=== PATIENT | female | born 1940 | race Hispanic/Latino ===

== ENCOUNTER 2017-07-06 18:27 | Emergency (ER) | payer MEDICARE, BC ==
[2017-07-06 18:38] VITALS: BMI 20.9
[2017-07-06 18:41] VITALS: TEMP 98
[2017-07-06 19:51] LABS: BASO # 0.01 K/mm3 (0.0-2.0); BASO % 0.2 % (0.0-3.0); EOS # 0.2 (0.0-0.7); EOS % 3.1 % (1.5-5.0); GRAN # 4.29 (1.4-6.5); GRAN % 66.6 % (50.0-68.0); LYMPH # 1.4 (1.2-3.4); LYMPH % 21.7 % (22.0-35.0); MEAN CELL VOLUME 90.9 fl (80.0-105.0); MEAN CORPUSCULAR HEMOGLOBIN 30.4 pg (25.0-35.0); MEAN CORPUSCULAR HGB CONC 33.4 g/dl (31.0-37.0); MEAN PLATELET VOLUME 9.9 fl (7.0-11.0); MONO # 0.5 (0.1-0.6); MONO % 8.4 % (1.0-6.0); RED CELL DISTRIBUTION WIDTH 13.6 % (11.5-14.5); WHITE BLOOD COUNT 6.4 10^3/ul (4.5-11.0)
[2017-07-06 20:05] LABS: INR 0.94 (0.93-1.08)
[2017-07-06 20:08] LABS: ALB/GLOB RATIO 1.6 (1.1-1.8); ALKALINE PHOSPHATASE 69 U/L (38-126); ALT/SGPT 44 U/L (7-56); AST/SGOT 35 U/L (14-36); BILIRUBIN,TOTAL 0.3 mg/dL (0.2-1.3); BLOOD UREA NITROGEN 17 mg/dL (7-21); CALCIUM 9.8 mg/dL (8.4-10.5); CARBON DIOXIDE 29 mmol/L (21-33); CHLORIDE 101 mmol/L (98-107); GFR AFRICAN-AMERICAN > 60; GLUCOSE,RANDOM 145 mg/dL (70-110); SODIUM 139 mmol/L (132-148); TOTAL PROTEIN 7.4 g/dL (5.8-8.3)
--- NOTE | 2017-07-06 21:15 | CT ---
EXAM: CT Chest Without Intravenous Contrast CLINICAL HISTORY: The patient age is 77 years old and is female; Pain; Abdominal pain; Acute; Chest pain; Type not specified; Patient HX: Pt ate to fast. RO food impaction Facility exam id and description: Ct cheabds chest, abdomen w/o contrast TECHNIQUE: Axial computed tomography images of the chest without intravenous contrast. All CT scans at this facility use one or more dose reduction techniques, viz.: automated exposure control; ma/kV adjustment per patient size (including targeted exams where dose is matched to indication; i.e. head); or iterative reconstruction technique. Coronal and sagittal reformatted images were created and reviewed. COMPARISON: No relevant prior studies available. FINDINGS: Lungs: Atelectatic changes are identified at the bilateral lung bases as well as within the right middle lobe and lingula. A small consolidation is visualized at the right pulmonary apex, likely due to parenchymal scarring. Within the right upper lobe on series 4 image 22, there is a 3-4 mm nodule. Pleural space: No pneumothorax. No significant effusion. Heart: There is coronary artery calcification. No cardiomegaly. Mediastinum: There is no distention of the esophagus. Bones/joints: Osteopenia. Hypertrophic degenerative changes are noted within the spine. There is significant increased kyphosis of the thoracic spine. Vasculature: There is atherosclerotic calcification of the thoracic aorta. Lymph nodes: No enlarged lymph nodes. Other: Multiple right axillary surgical clips are visualized. The right breast is absent, consistent with postoperative change. IMPRESSION: 1. Atelectatic changes are identified at the bilateral lung bases as well as within the right middle lobe and lingula. A small consolidation is visualized at the right pulmonary apex, likely due to parenchymal scarring. 2. Within the right upper lobe on series 4 image 22, there is a 3-4 mm nodule.If this patient is at low risk for a primary malignancy, then no follow-up is required. If this patient is at high risk for a primary maligancy, then a follow-up noncontrast chest CT is recommended at 12 months. If unchanged at that time, then no follow-up is required. Fleischner Society Recommendations. Incidental Pulmonary Nodule Follow-up. Radiology, 2005 Nov;237(2):395-400. 3. There is no distention of the esophagus. If further evaluation is recommended, and upper GI exam is suggested. 4. Additional CT findings described above. EXAM: CT Abdomen Without Intravenous Contrast EXAM DATE/TIME: 07/06/2017 7:20 PM CLINICAL HISTORY: The patient age is 77 years old and is female; Pain; Abdominal pain; Acute; Chest pain; Type not specified; Patient HX: Pt ate to fast. RO food impaction Facility exam id and description: Ct cheabds chest, abdomen w/o contrast TECHNIQUE: Axial computed tomography images of the abdomen without intravenous contrast. All CT scans at this facility use one or more dose reduction techniques, viz.: automated exposure control; ma/kV adjustment per patient size (including targeted exams where dose is matched to indication; i.e. head); or iterative reconstruction technique. Coronal and sagittal reformatted images were created and reviewed. COMPARISON: CT - ABD PELVIS IV CONTRAST ONLY 11/19/2015 9:24:59 AM FINDINGS: Liver: There is a subcentimeter hypodense lesion within the right lobe of the liver, which is too small to characterize further. This is stable. The liver measures 18.7 cm in the craniocaudad dimension, consistent with hepatomegaly. Gallbladder and bile ducts: No calcified stones. No ductal dilation. Pancreas: No ductal dilation. Spleen: No splenomegaly. Adrenals: Within the left adrenal gland, there is a small hypodense nodule measuring 4 mm. This is indeterminate in etiology, but stable. Kidneys and ureters: Nonobstructing left renal calculi are visualized, the largest measuring 6 mm. There is left renal pelviectasis. Stomach and bowel: There is significant fecal material within the right hemicolon. Appendix: Not visualized. Intraperitoneal space: No free air. Bones/joints: Osteopenia. Hypertrophic degenerative changes are noted within the spine. Vasculature: Atherosclerotic changes are visualized. No abdominal aortic aneurysm. Lymph nodes: No enlarged lymph nodes. IMPRESSION: 1. Nonobstructing left renal calculi are again visualized, the largest measuring 6 mm. There is left renal pelviectasis. 2. There is a subcentimeter hypodense lesion within the right lobe of the liver, which is too small to characterize further. This is stable. Hepatomegaly. 3. Within the left adrenal gland, there is a small hypodense nodule measuring 4 mm. This is indeterminate in etiology, but stable. 4. Additional CT findings described above.
--- NOTE | 2017-07-06 21:20 | ED PDOC ---
Arrival/HPI - General Chief Complaint: GI Problem Time Seen by Provider: 07/06/17 19:06 Historian: Patient - History of Present Illness Narrative History of Present Illness (Text): 07/06/17 21:19 A 77 year old female presents to the emergency department for evaluation. Patient reports she ate vegetables and mash potatoes too quickly and feels something is stuck inside her throat. She states she had the sensation she couldn't breath for a moment but it spontaneously resolved shortly after. Patient is concerned something is still stuck in her throat so she came to the emergency room. Patient denies any fever, chills, nausea, vomiting, abdominal pain, chest pain, shortness of breath or any other complaints. Time/Duration: Prior to Arrival Symptom Course: Unchanged Quality: Other Context: Home Past Medical History - Provider Review Nursing Documentation Reviewed: Yes - Infectious Disease Hx of Infectious Diseases: None - Cardiac Hx Hypertension: Yes Hx Pacemaker: No - Hematological/Oncological Hx Blood Transfusions: No Hx Blood Transfusion Reaction: No Hx Cancer: Yes (R breast CA) - Musculoskeletal/Rheumatological Hx Musculoskeletal Disorders: Yes - Psychiatric Hx Emotional Abuse: No Hx Physical Abuse: No Hx Substance Use: No - Surgical History Other/Comment: R breast mastectomy - Anesthesia Hx Anesthesia: Yes Hx Anesthesia Reactions: No Hx Malignant Hyperthermia: No - Suicidal Assessment Feels Threatened In Home Enviroment: No Family/Social History - Physician Review Nursing Documentation Reviewed: Yes Family/Social History: No Known Family HX Smoking Status: Never Smoked Hx Alcohol Use: No Hx Substance Use: No Allergies/Home Meds Allergies/Adverse Reactions: Allergies Penicillins Allergy (Mild, Verified 12/18/15 14:42) SL REDNESS Home Medications: Home Meds Medication Instructions Recorded Confirmed Aspirin [Ecotrin] 81 mg PO DAILY 12/18/15 07/06/17 Azilsartan Medoxomil [Edarbi] 80 mg PO QAM 12/18/15 07/06/17 Biotin [Hard Nails] 5,000 mcg PO DAILY 12/18/15 07/06/17 Calcium Carbonate/Vitamin D3 1 each PO DAILY 12/18/15 07/06/17 [Caltrate 600 + D Tablet] Cholecalciferol (Vitamin D3) 2,000 unit PO DAILY 12/18/15 07/06/17 [Vitamin D-3] Multivit-Min/FA/Lycopen/Lutein 1 each PO DAILY 12/18/15 07/06/17 [Centrum Silver Tablet] [place]-3/Dha/Epa/Fish Oil [Fish Oil] 1,000 mg PO DAILY 12/18/15 07/06/17 Simvastatin 5 mg PO QOTHERDAY 12/18/15 07/06/17 Physical Exam - Physical Exam Narrative Physical Exam (Text): - Review of Systems Constitutional: Normal. absent: Fatigue, Weight Change, Fevers Eyes: Normal ENT: (+) Sensation of food stuck in throat. denies sore throat, denies tristhmus Respiratory: Normal. absent: SOB, Cough, Sputum Cardiovascular: absent: Chest Pain, Palpitations, Syncope Gastrointestinal: Normal. absent: Abdominal Pain, Diarrhea, Nausea, Vomiting Genitourinary: Normal. absent: Dysuria, Frequency, Hematuria, vaginal bleeding Musculoskeletal: Normal. absent: Arthralgias, Back Pain, Neck Pain Skin: no rashes, no erythema Neurological: absent: Focal Weakness Endocrine: Normal Hemo/Lymphatic: Normal Psychiatric: No suicidal or homicidal ideations Physical exam Patient appears age appropriate in no distress, speaking full sentences without difficulty - Systems Exam Head: Present: Atraumatic, Normocephalic Pupils: Present: PERRL Extroacular Muscles: Present: EOMI Conjunctiva: Present: Normal Mouth: Present: Moist Mucous Membranes Pharnyx: Present: Normal. No: ERYTHEMA, EXUDATE, TONSILS ENLARGED, Peritonsilar Swelling, Uvular Deviation, Muffled/Hoarse Voice, Strider, Soft Palate/Uvular Edema Neck: Present: Normal Range of Motion. No: MIDLINE TENDERNESS, Paraspinal Tenderness Respiratory/Chest: Present: Clear to Auscultation, Good Air Exchange. No: Respiratory Distress, Accessory Muscle Use, Tachypneic Cardiovascular: Present: Regular Rate and Rhythm, Normal S1, S2, Peripheal Pulses Present. No: Murmurs Abdomen: Present: Normal Bowel Sounds. No: Tenderness, Distention, Peritoneal Signs, Rebound, Guarding Back: Present: Normal Inspection. No: Midline Tenderness, Paraspinal Tenderness Upper Extremity: Present: Normal Inspection. No: Cyanosis, Edema Lower Extremity: Present: Normal Inspection. No: Edema Neurological: Present: GCS=15, Speech Normal, cranial nerves II through XII fully intact with no cerebellar abnormality, neurosensory fully intact. No focal neurological deficits. Skin: Present: Warm, Dry, Normal Color. No: Rashes Lymphatic: Present: OX3, NI, NC Psychiatric: Present: Alert, Oriented x 3, Normal Insight, Normal Concentration Vital Signs Reviewed: Yes Vital Signs Temp Pulse Resp BP Pulse Ox 07/06/17 18:40 98.0 F 84 18 160/77 H 96 Temperature: Afebrile Blood Pressure: Hypertensive Pulse: Regular Respiratory Rate: Normal Appearance: Positive for: Well-Appearing, Non-Toxic, Comfortable Pain Distress: None Mental Status: Positive for: Alert and Oriented X 3 Medical Decision Making ED Course and Treatment: 07/06/17 21:19 Impression: A 77 year old female complaining of the sensation of something stuck in her throat. Physical exam unremarkable. Plan: -- Chest abdomen CT -- Labs -- Reassess and disposition Progress Notes: Report Date: 07/06/17 21:15 Dictated and Authenticated by: Morris Millan MD EXAM: CT Chest Without Intravenous Contrast IMPRESSION: 1. Atelectatic changes are identified at the bilateral lung bases as well as within the right middle lobe and lingula. A small consolidation is visualized at the right pulmonary apex, likely due to parenchymal scarring. 2. Within the right upper lobe on series 4 image 22, there is a 3-4 mm nodule. If this patient is at low risk for a primary malignancy, then no follow-up is required. If this patient is at high risk for a primary maligancy, then a follow -up noncontrast chest CT is recommended at 12 months. If unchanged at that time , then no follow-up is required. Fleischner Society Recommendations. Incidental Pulmonary Nodule Follow-up. Radiology, 2005 Nov;237(2):395-400. 3. There is no distention of the esophagus. If further evaluation is recommended , and upper GI exam is suggested. 4. Additional CT findings described above. EXAM: CT Abdomen Without Intravenous Contrast IMPRESSION: 1. Nonobstructing left renal calculi are again visualized, the largest measuring 6 mm. There is left renal pelviectasis. 2. There is a subcentimeter hypodense lesion within the right lobe of the liver , which is too small to characterize further. This is stable. Hepatomegaly. 3. Within the left adrenal gland, there is a small hypodense nodule measuring 4 mm. This is indeterminate in etiology, but stable. 4. Additional CT findings described above. 07/06/17 21:40 patient informed she needs to f/u with her PMD for her CT results and for reevaluation pt is tolerating PO without any difficulty pt states she has no cp/sob/garcia states she feels comfortable being dc'd home with outpatient f/u Pt states she understands to return to the ER right away for new or worsening symptoms or for inability to f/u with PMD or specialist as instructed. Patient states that she fully agrees with and understands discharge instructions. States that she agrees with the plan and disposition. Verbalized and repeated discharge instructions and plan. I have given the patient opportunity to ask any additional questions. - Lab Interpretations Lab Results: 07/06/17 19:47 07/06/17 19:47 Lab Results 07/06/17 19:47: Sodium 139, Potassium 5.0, Chloride 101, Carbon Dioxide 29, Anion Gap 14, BUN 17, Creatinine 0.8, Est GFR ( Amer) > 60, Est GFR (Non- Af Amer) > 60, Random Glucose 145 H, Calcium 9.8, Total Bilirubin 0.3, AST 35, ALT 44, Alkaline Phosphatase 69, Total Protein 7.4, Albumin 4.5, Globulin 2.9, Albumin/Globulin Ratio 1.6 07/06/17 19:47: PT 10.2, INR 0.94, APTT 28.0 07/06/17 19:47: WBC 6.4, RBC 4.51, Hgb 13.7, Hct 41.0, MCV 90.9, MCH 30.4, MCHC 33.4, RDW 13.6, Plt Count 226, MPV 9.9, Gran % 66.6, Lymph % (Auto) 21.7 L, [place] % (Auto) 8.4 H, Eos % (Auto) 3.1, Baso % (Auto) 0.2, Gran # 4.29, Lymph # 1.4, [place] # 0.5, Eos # 0.2, Baso # 0.01 I have reviewed the lab results: Yes - RAD Interpretation Radiology Orders: 07/06/17 19:20 CHEST, ABDOMEN W/O CONTRAST [CT] Stat - Scribe Statement The provider has reviewed the documentation as recorded by the Scribjudie Clarke Provider Scribe Attestation: All medical record entries made by the Scribe were at my direction and personally dictated by me. I have reviewed the chart and agree that the record accurately reflects my personal performance of the history, physical exam, medical decision making, and the department course for this patient. I have also personally directed, reviewed, and agree with the discharge instructions and disposition. Disposition/Present on Arrival - Present on Arrival Any Indicators Present on Arrival: No History of DVT/PE: No History of Uncontrolled Diabetes: No Urinary Catheter: No History of Decub. Ulcer: No History Surgical Site Infection Following: None - Disposition Have Diagnosis and Disposition been Completed?: Yes Diagnosis: Dysphagia Disposition Time: 21:44 Patient Plan: Discharge Discharge Instructions (ExitCare): Dysphagia (ED), Foreign Body Ingestion (ED) Additional Instructions: PLEASE RETURN TO THE EMERGENCY DEPARTMENT FOR NEW OR WORSENING SYMPTOMS. RETURN RIGHT AWAY IF YOU CANNOT FOLLOW UP WITH YOUR PRIMARY CARE DOCTOR, CLINIC, OR SPECIALIST IN 1-2 DAYS. Referrals: Mello Bell MD [Primary Care Provider] - Follow up with primary Melanie Grande MD [Medical Doctor] - Follow up with primary Sean Morgan MD [Staff Provider] - Follow up with primary Forms: [employer] ([place]ian)
[2017-07-06 21:59] VITALS: BP 151/72; PULSE 88; RESP 17; O2SAT 98
== END 2017-07-06 22:06 | disposition home or self-care (01) ==
LOC: ED 18:27
DX: R13.10 Dysphagia, unspecified (principal); I10 Essential (primary) hypertension

== ENCOUNTER 2017-07-14 10:12 | Inpatient (IN) | payer MEDICARE, BC ==
[2017-07-14 10:12] VITALS: BMI 20.9
[2017-07-14] MEDS ORDERED: Sodium Chloride 0.9% 500 ML IV STA (10:47)
--- NOTE | 2017-07-14 11:10 | ED PDOC ---
Arrival/HPI - History of Present Illness Time/Duration: > week Symptom Onset: Sudden Symptom Course: Unchanged <Osiel Hsieh - Last Filed: 07/14/17 16:55> <Kahlil Ashley - Last Filed: 07/14/17 16:57> - General Chief Complaint: Weakness/Neurological Deficit Time Seen by Provider: 07/14/17 10:21 - History of Present Illness Narrative History of Present Illness (Text): 07/14/17 11:04 This is a 77 year old female with PMHx HTN and HLD who presents complaining of inability to swallow food or drink. Patient states that this has been occurring since last Thursday when she came into the ED. Patient states that she feels that she is unable to swallow food unless it is in very tiny pieces. Patient states that she is unable to swallow liquids and therefore just keeps her mouth moist. Patient states that she feels that she is growing weaker due to poor PO intake. Patient also admits to bloating and constipation but used Miralax last night causing her to have an episode of loose stools earlier this morning. Patient denies fever, chills, nausea, vomiting, chest pain, dyspnea, abdominal pain, dysuria. PMD: Dr. Bell GI: Dr. Grande (Osiel Hsieh) Past Medical History - Infectious Disease Hx of Infectious Diseases: None - Reproductive Menopause: Yes - Cardiac Hx Hypertension: Yes Hx Pacemaker: No - Hematological/Oncological Hx Blood Transfusions: No Hx Blood Transfusion Reaction: No Hx Cancer: Yes (R breast CA) - Musculoskeletal/Rheumatological Hx Musculoskeletal Disorders: Yes - Psychiatric Hx Emotional Abuse: No Hx Physical Abuse: No Hx Substance Use: No - Surgical History Other/Comment: R breast mastectomy - Anesthesia Hx Anesthesia: Yes Hx Anesthesia Reactions: No Hx Malignant Hyperthermia: No - Suicidal Assessment Feels Threatened In Home Enviroment: No <Osiel Hsieh - Last Filed: 07/14/17 16:55> - Provider Review Nursing Documentation Reviewed: Yes <Kahlil Ashley - Last Filed: 07/14/17 16:57> Family/Social History Smoking Status: Never Smoked Hx Alcohol Use: No Hx Substance Use: No <Osiel Hsieh - Last Filed: 07/14/17 16:55> - Physician Review Nursing Documentation Reviewed: Yes Family/Social History: No Known Family HX <Kahlil Ashley - Last Filed: 07/14/17 16:57> Allergies/Home Meds <Osiel Hsieh - Last Filed: 07/14/17 16:55> <Khalil Ashley - Last Filed: 07/14/17 16:57> Allergies/Adverse Reactions: Allergies Penicillins Allergy (Mild, Verified 12/18/15 14:42) SL REDNESS Home Medications: Home Meds Medication Instructions Recorded Confirmed Azilsartan Medoxomil [Edarbi] 80 mg PO QAM 12/18/15 07/14/17 Biotin [Hard Nails] 5,000 mcg PO DAILY 12/18/15 07/14/17 Calcium Carbonate/Vitamin D3 1 each PO DAILY 12/18/15 07/14/17 [Caltrate 600 + D Tablet] Cholecalciferol (Vitamin D3) 2,000 unit PO DAILY 12/18/15 07/14/17 [Vitamin D-3] Multivit-Min/FA/Lycopen/Lutein 1 each PO DAILY 12/18/15 07/14/17 [Centrum Silver Tablet] [place]-3/Dha/Epa/Fish Oil [Fish Oil] 1,000 mg PO DAILY 12/18/15 07/14/17 Simvastatin 5 mg PO QOTHERDAY 12/18/15 07/14/17 Travoprost [Travatan Z 5 ml] 5 ml OU DAILY 07/14/17 07/14/17 Review of Systems - Review of Systems Constitutional: Normal. absent: Fevers Eyes: Normal ENT: Normal Respiratory: Normal. absent: SOB Cardiovascular: Normal. absent: Chest Pain Gastrointestinal: Constipation, Other (inability to swallow food and liquid). absent: Abdominal Pain, Nausea, Vomiting Genitourinary Female: Normal. absent: Dysuria Musculoskeletal: Normal Skin: Normal Neurological: Normal Endocrine: Normal Hemo/Lymphatic: Normal Psychiatric: Normal <Vic Hsieha Sandeep - Last Filed: 07/14/17 16:55> Physical Exam Vital Signs Reviewed: Yes Temperature: Afebrile Blood Pressure: Hypertensive Pulse: Regular Respiratory Rate: Normal Appearance: Positive for: Ill-Appearing Pain Distress: None Mental Status: Positive for: Alert and Oriented X 3 - Systems Exam Head: Present: Atraumatic, Normocephalic Pupils: Present: PERRL Extroacular Muscles: Present: EOMI Conjunctiva: Present: Normal Mouth: Present: Moist Mucous Membranes Neck: Present: Normal Range of Motion Respiratory/Chest: Present: Clear to Auscultation, Good Air Exchange. No: Accessory Muscle Use Cardiovascular: Present: Regular Rate and Rhythm, Normal S1, S2 Abdomen: Present: Normal Bowel Sounds, Other (soft). No: Tenderness, Distention Upper Extremity: Present: Normal Inspection, NORMAL PULSES. No: Edema Lower Extremity: Present: Normal Inspection, NORMAL PULSES. No: Edema, CALF TENDERNESS Neurological: Present: GCS=15, CN II-XII Intact, Motor Func Grossly Intact Skin: Present: Warm, Dry. No: Rashes Psychiatric: Present: Alert, Oriented x 3 <Osiel Hsieh S - Last Filed: 07/14/17 16:55> Vital Signs Temp Pulse Resp BP Pulse Ox 07/14/17 15:59 91 H 15 160/75 H 97 07/14/17 15:29 79 17 152/71 H 97 07/14/17 14:59 98.2 F 73 18 163/72 H 97 07/14/17 14:44 98.2 F 77 18 159/73 H 97 07/14/17 14:29 98.2 F 73 17 134/63 97 07/14/17 14:14 98.2 F 74 17 117/58 L 98 07/14/17 13:42 98 07/14/17 12:10 80 152/72 H 07/14/17 10:26 98.5 F 82 16 161/81 H 98 Medical Decision Making <Osiel Hsieh S - Last Filed: 07/14/17 16:55> <Kahlil Ashley L - Last Filed: 07/14/17 16:57> ED Course and Treatment: 07/14/17 11:37 Impression: This is a 77 year old female complaining of dysphagia to foods and liquids. Patient will likely need upper GI workup. Plan: CBC, CMP, Mag, Phos Amylase, Lipase, Coags UA NS 500cc bolus 07/14/17 11:59 Clinically, the patient appears stable. She did not appear particularly dehydrated. No focal weakness on exam. Her laboratory studies were not concerning for signs of dehydration. Spoken with Dr. Grande at 12:00 on the phone who wished for patient to be admitted to [facility] for workup. (Osiel Hsieh) A 77 year old female with difficulty swallowing. In agreement with resident note , which includes further HPI details. Patient was seen and evaluated with resident, came up with plan and treatment together. (Kahlil Ashley) - Lab Interpretations Lab Results: 07/14/17 11:31 07/14/17 11:31 Lab Results 07/14/17 12:16: Urine Color Yellow, Urine Appearance Clear, Urine pH 6.0, Ur Specific [place] <= 1.005, Urine Protein Negative, Urine Glucose (UA) Negative, Urine Ketones 15 H, Urine Blood Small H, Urine Nitrate Negative, Urine Bilirubin Negative, Urine Urobilinogen 0.2, Ur Leukocyte Esterase Trace H, Urine RBC 2 - 5, Urine WBC 2 - 5, Ur Epithelial Cells 3 - 4, Urine Bacteria Few 07/14/17 11:31: Sodium 140, Potassium 4.2, Chloride 103, Carbon Dioxide 24, Anion Gap 17, BUN 11, Creatinine 0.7, Est GFR ( Amer) > 60, Est GFR (Non- Af Amer) > 60, Random Glucose 90, Calcium 9.5, Phosphorus 3.5, Magnesium 2.0, Total Bilirubin 0.6, AST 30, ALT 41, Alkaline Phosphatase 61, Total Protein 6.9 , Albumin 4.3, Globulin 2.6, Albumin/Globulin Ratio 1.7, Amylase 96, Lipase 121 07/14/17 11:31: PT 11.4, INR 1.06, APTT 30.3 07/14/17 11:31: WBC 6.0, RBC 4.37, Hgb 13.2, Hct 38.7, MCV 88.6, MCH 30.2, MCHC 34.1, RDW 13.4, Plt Count 222, MPV 9.7, Gran % 78.2 H, Lymph % (Auto) 14.3 L, [place] % (Auto) 7.0 H, Eos % (Auto) 0.3 L, Baso % (Auto) 0.2, Gran # 4.66, Lymph # 0.9 L, [place] # 0.4, Eos # 0.0, Baso # 0.01 - Medication Orders Current Medication Orders: Discontinued Medications Sodium Chloride (Sodium Chloride 0.9%) 500 mls @ 999 mls/hr IV .Q31M STA Stop: 07/14/17 11:17 Last Admin: 07/14/17 11:34 Dose: 999 mls/hr eMAR Start Stop Document 07/14/17 11:34 AD (Rec: 07/14/17 11:34 AD [id number]) Intravenous Solution Start Date 07/14/17 Start Time 11:34 Sodium Chloride (Sodium Chloride 0.9%) 500 mls @ 75 mls/hr IV .Q6H40M MUKESH Stop: 07/14/17 15:46 Lidocaine HCl (Lidocaine 2% 20ml Vial) Confirm Administered Dose 20 ml .ROUTE .STK-MED ONE Stop: 07/14/17 13:48 Propofol (Diprivan) Confirm Administered Dose 200 mg .ROUTE .STK-MED ONE Stop: 07/14/17 13:47 Propofol (Diprivan) Confirm Administered Dose 200 mg .ROUTE .STK-MED ONE Stop: 07/14/17 14:05 <Osiel Hsieh - Last Filed: 07/14/17 16:55> - PA / LABELING STRATEGIST / Resident Statement MD/DO has reviewed & agrees with the documentation as recorded. MD/DO has examined the patient and agrees with the treatment plan. - Scribe Statement The provider has reviewed the documentation as recorded by the Scribe <Kahlil Ashley - Last Filed: 07/14/17 16:57> - Scribe Statement Mirna Clarke Provider Scribe Attestation: All medical record entries made by the Scribe were at my direction and personally dictated by me. I have reviewed the chart and agree that the record accurately reflects my personal performance of the history, physical exam, medical decision making, and the department course for this patient. I have also personally directed, reviewed, and agree with the discharge instructions and disposition. (Kahlil Ashley) Disposition/Present on Arrival - Present on Arrival Any Indicators Present on Arrival: No History of DVT/PE: No History of Uncontrolled Diabetes: No Urinary Catheter: No History of Decub. Ulcer: No History Surgical Site Infection Following: None - Disposition Have Diagnosis and Disposition been Completed?: Yes Disposition Time: 12:00 <Osiel Hsieh - Last Filed: 07/14/17 16:55> <Kahlil Ashley - Last Filed: 07/14/17 16:57> - Disposition Diagnosis: Dysphagia Patient Problems: Current Active Problems Problem Status Onset Dysphagia Acute Condition: STABLE
[2017-07-14 11:36] LABS: BASO # 0.01 K/mm3 (0.0-2.0); BASO % 0.2 % (0.0-3.0); EOS % 0.3 % (1.5-5.0); GRAN # 4.66 (1.4-6.5); GRAN % 78.2 % (50.0-68.0); HEMATOCRIT 38.7 % (36.0-48.0); LYMPH # 0.9 (1.2-3.4); LYMPH % 14.3 % (22.0-35.0); MEAN CELL VOLUME 88.6 fl (80.0-105.0); MEAN CORPUSCULAR HEMOGLOBIN 30.2 pg (25.0-35.0); MEAN CORPUSCULAR HGB CONC 34.1 g/dl (31.0-37.0); MEAN PLATELET VOLUME 9.7 fl (7.0-11.0); MONO # 0.4 (0.1-0.6); RED CELL DISTRIBUTION WIDTH 13.4 % (11.5-14.5)
[2017-07-14 11:45] LABS: INR 1.06 (0.93-1.08); PARTIAL THROMBOPLASTIN TIME 30.3 Seconds (23.7-30.8)
[2017-07-14 11:46] LABS: ALB/GLOB RATIO 1.7 (1.1-1.8); ALKALINE PHOSPHATASE 61 U/L (38-126); ALT/SGPT 41 U/L (7-56); AMYLASE 96 U/L (35-125); AST/SGOT 30 U/L (14-36); BILIRUBIN,TOTAL 0.6 mg/dL (0.2-1.3); BLOOD UREA NITROGEN 11 mg/dL (7-21); CALCIUM 9.5 mg/dL (8.4-10.5); CARBON DIOXIDE 24 mmol/L (21-33); CHLORIDE 103 mmol/L (98-107); GFR AFRICAN-AMERICAN > 60; GLUCOSE,RANDOM 90 mg/dL (70-110); LIPASE 121 U/L (23-300); PHOSPHOROUS 3.5 mg/dL (2.5-4.5); POTASSIUM 4.2 mmol/L (3.6-5.0); SODIUM 140 mmol/L (132-148); TOTAL PROTEIN 6.9 g/dL (5.8-8.3)
[2017-07-14 12:36] LABS: URINE BILIRUBIN NEGATIVE (NEGATIVE); URINE BLOOD SMALL (NEGATIVE); URINE GLUCOSE (UA) NEGATIVE (NEGATIVE); URINE KETONE 15 mg/dL (NEGATIVE); URINE LEUKOCYTE ESTERASE TRACE Leu/uL (NEGATIVE); URINE PROTEIN NEGATIVE mg/dL (<30 mg/dL); URINE UROBILINOGEN 0.2 E.U./dL (<1 E.U./dL)
[2017-07-14 12:40] LABS: URINE APPEARANCE CLEAR (CLEAR); URINE COLOR YELLOW (YELLOW)
[2017-07-14 12:45] LABS: URINE BACTERIA FEW (NEG)
[2017-07-14] MEDS ORDERED: Sodium Chloride 0.9% 500 ML IV SCH (13:45)
[2017-07-14] MEDS ORDERED: Propofol 10 mg/ml Inj (20 ML) ONE ×2 (13:46→14:04)
[2017-07-14] MEDS ORDERED: Lidocaine 2% Inj (20ml) ONE (13:47)
[2017-07-14] MEDS ORDERED: Dextrose 5%/0.9% NS 1,000 ML IV SCH (17:30)
[2017-07-14] MEDS ORDERED: Gadodiamide 287 MG/ML VIAL (15ML) IV ONE (20:09)
[2017-07-14] MEDS ORDERED: Iohexol 350 MG/100 ML VIAL ONE (20:45)
--- NOTE | 2017-07-14 21:30 | MRI ---
EXAM: MR Head Without and With Intravenous Contrast EXAM DATE/TIME: 07/14/2017 7:00 PM CLINICAL HISTORY: The patient age is 77 years old and is female; Signs and symptoms; Other: CVA; Additional info: Dysphagia R/O CVA Facility exam id and description: Mri br cs brain w wo contrast TECHNIQUE: Magnetic resonance images of the head/brain without and with intravenous contrast in multiple planes. CONTRAST: 15 mL of omniscan administered intravenously. COMPARISON: No relevant prior studies available. FINDINGS: Brain: There is no restricted diffusion within the brain to suggest acute ischemic change. There are scattered foci of high FLAIR signal intensity within the cerebral white matter. There is no mass effect or restricted diffusion associated with these foci. In a patient this age, this likely represents chronic small vessel ischemic disease. There is prominence of the ventricles and sulci, compatible with atrophy. No abnormally enhancing intracranial mass is visualized. No cerebral edema. Ventricles: See above. Bones/joints: No acute abnormality. Sinuses: There is a mucous retention cyst or polyp within the left maxillary sinus. No acute sinusitis. Mastoid air cells: No mastoid effusion. Auditory system: On the axial postcontrast sequence, there is a focus of hyperintensity within the right internal auditory canal, which when correlated with the coronal sequence is external to the canal. This is also hyperintense on the precontrast sequence, without significant enhancement. This finding is likely of limited clinical significance. Orbits: Probable bilateral intraocular lens implants are visualized. IMPRESSION: 1. There is no restricted diffusion within the brain to suggest acute ischemic change. 2. There are scattered foci of high FLAIR signal intensity within the cerebral white matter. In a patient this age, this likely represents chronic small vessel ischemic disease. 3. Atrophy. 4. Paranasal sinus disease is noted above.
--- NOTE | 2017-07-14 22:22 | CT ---
EXAM: CT Neck Without and With Intravenous Contrast EXAM DATE/TIME: 07/14/2017 6:59 PM CLINICAL HISTORY: The patient age is 77 years old and is female; Signs and symptoms; Dysphagia / difficulty swallowing; Additional info: Dysphgia Facility exam id and description: Ct neckstcs neck soft tissue w/wo contrast TECHNIQUE: Axial computed tomography images of the neck without and with intravenous contrast. All CT scans at this facility use one or more dose reduction techniques, viz.: automated exposure control; ma/kV adjustment per patient size (including targeted exams where dose is matched to indication; i.e. head); or iterative reconstruction technique. CONTRAST: 100 mL of OMNI 350 administered intravenously. COMPARISON: No relevant prior studies available. FINDINGS: Nasopharynx: No acute abnormality. Oropharynx: No significant tonsillar enlargement. No peritonsillar abscess. Hypopharynx: No acute abnormality. Larynx: There is asymmetric decreased aeration of the left vallecula, without a well-defined mass. Normal epiglottis. Trachea: No acute abnormality. Retropharyngeal space: No acute abnormality. Submandibular/parotid glands: Glands are normal in size. Thyroid: There is a tiny hypodense suspected nodule or cyst within the right thyroid lobe, which is too small to characterize further. Bones/joints: The C3 and C4 vertebral bodies appear fused. Osteopenia. Soft tissues: No significant swelling of the soft tissues of the neck. Vasculature: Atherosclerotic changes are visualized. Lymph nodes: No lymphadenopathy. Sinuses: A mucus retention cyst or polyp is visualized within the left maxillary sinus. Lung apices: Biapical parenchymal scarring is visualized within the lungs. IMPRESSION: 1. There is asymmetric decreased aeration of the left vallecula, without a well-defined mass. Clinical correlation is recommended. 2. Paranasal sinus disease is noted above. 3. Incidental/non-acute findings are described above.
[2017-07-14 23:40] VITALS: O2SAT 95
--- NOTE | 2017-07-15 00:14 | CP.PCM.CON ---
History of Present Illness - History of Present Illness History of Present Illness: this 77-year-old patient was seen in the emergency room on 911 with the difficulty in swallowing. She said she was eating vegetables and also potatoes. She had a larger food intake on the day had difficulty in swallowing after that. Patient had a CAT scan done sent home since then patient is not able to take mainly liquids only sips of liquids she could take but she was able to take small amount of solid food. She was seen in the office yesterday. She patient called me back saying that she is not able to take any food which apparently was treated with an outpatient EGD. As the patient was complaining of not able to eat liquids only to consider would trigger abnormalities to be considered patient was sent to the emergency room. Patient is still complaining of some difficulty in swallowing the blood tests were essentially okay. Patient underwent upper GI endoscopy which revealed no obstructing lesions in the upper esophagus. There was some mild congestion and noticed in the pharyngeal area. . The concern is the difficulty in swallowing mainly for the liquids and with negative endoscopy consent is about to neuromuscular etiology for dysphagia. In view of of the event the decision was dictated. Admitted patient to further evaluate. Patient was explained postprocedure findings and indication for admission patient is agreeable for admission oTHER PAST MEDICAL HISTORY includes history of breast cancer status post lumpectomy SURGICAL HISTORY positive for right mastectomy, history of colonoscopy SOCIAL HISTORY denies smoking or alcohol R EVIEW OF SYSTEM all other systems negative except as mentioned above. Past Patient History - Infectious Disease Hx of Infectious Diseases: None - Past Social History Smoking Status: Never Smoked - CARDIAC Hx Cardiac Disorders: Yes Hx Hypercholesterolemia: Yes Hx Hypertension: Yes - PULMONARY Hx Respiratory Disorders: No - NEUROLOGICAL Hx Neurological Disorder: No - HEENT Hx HEENT Problems: No - RENAL Hx Chronic Kidney Disease: No - ENDOCRINE/METABOLIC Hx Endocrine Disorders: No - HEMATOLOGICAL/ONCOLOGICAL Hx Blood Disorders: No - INTEGUMENTARY Hx Dermatological Problems: No - MUSCULOSKELETAL/RHEUMATOLOGICAL Hx Musculoskeletal Disorders: Yes Hx Falls: No Hx Osteoporosis: Yes - GASTROINTESTINAL Hx Gastrointestinal Disorders: No - GENITOURINARY/GYNECOLOGICAL Hx Genitourinary Disorders: No - PSYCHIATRIC Hx Psychophysiologic Disorder: No Hx Substance Use: No - SURGICAL HISTORY Hx Surgeries: Yes Hx Mastectomy: Yes (R. breast) - ANESTHESIA Hx Anesthesia: Yes Hx Anesthesia Reactions: No Hx Malignant Hyperthermia: No Meds Allergies/Adverse Reactions: Allergies Allergy/AdvReac Type Severity Reaction Status Date / Time Penicillins Allergy Mild SL REDNESS Verified 12/18/15 14:42 - Medications Medications: Current Medications Dextrose/Sodium Chloride (Dextrose 5%/0.9% Ns 1000 Ml) 1,000 mls @ 50 mls/hr IV .Q20H [facility] Last Admin: 07/14/17 18:21 Dose: 50 mls/hr Metoclopramide HCl (Reglan) 5 mg IVP TID [facility] Pantoprazole Sodium (Protonix Inj) 40 mg IVP DAILY [facility] Physical Exam - Constitutional Appears: No Acute Distress - Head Exam Head Exam: ATRAUMATIC, NORMOCEPHALIC - Eye Exam Eye Exam: EOMI, PERRL - Neck Exam Neck exam: Positive for: Normal Inspection. Negative for: Lymphadenopathy - Respiratory Exam Respiratory Exam: Clear to Auscultation Bilateral, NORMAL BREATHING PATTERN. absent: Rales, Rhonchi - Cardiovascular Exam Cardiovascular Exam: REGULAR RHYTHM, +S1, +S2. absent: JVD - GI/Abdominal Exam GI & Abdominal Exam: Normal Bowel Sounds, Soft. absent: Mass, Tenderness - Neurological Exam Neurological exam: Alert, Oriented x3 - Psychiatric Exam Psychiatric exam: Anxious - Skin Skin Exam: Intact, Normal Color Results - Vital Signs Recent Vital Signs: Last Vital Signs Temp 98.4 F 07/14/17 23:40 Pulse 69 07/14/17 23:40 Resp 20 07/14/17 23:40 BP 134/67 07/14/17 23:40 Pulse Ox 95 07/14/17 23:40 - Labs Result Diagrams: 07/14/17 11:31 07/14/17 11:31 Assessment & Plan - Assessment and Plan (Free Text) Assessment: this 71-year-old patient who was recently seen in the hospital a week ago with acute dysphagia was sent home following a CAT scan which did not reveal any any obstructive. Patient was having difficulty in swallowing liquids and also solids more so for liquids. Endoscopy revealed no foreign body or obstructive changes in the esophagus. He does have some mildly congested area. There is no clear explanation for this dysphagia the differential diagnosis Should include neurogenic etiology in view of the dysphagia for liquids Other differential diagnoses should include reflux disease, ENT etiology also to be considered and rule out to pharyngeal lesions plan 1. Admit the patient for monitoring for active dysphagia with a significantly poor by mouth intake 2. ENT evaluation 3. PPI 4. Swallowing evaluation 5. Modified barium swallow 6. ENT Thank you Sarwat to participate in the care of the patient continue to closely follow up FOR the further management based on the clinical course - Date & Time Date: 07/14/17 Time: 13:00
--- NOTE | 2017-07-15 04:30 | HP ---
HISTORY OF PRESENT ILLNESS: The patient is 77 years old known to me from office practice. The patient recently when she learned that eating too much fruits and vegetable is good for her health, so started to increase it. She has significant increase in her oral intake of fruits and vegetables. Since then, she noticed that she is having bloating and she is having difficulty burping, usually she feels satisfied after she burps, but she has been feeling as if she is not getting rid of air enough. At times, she has difficulty swallowing especially liquids. She went to ER where she had CAT scan of the abdomen and pelvis done and was unremarkable. She was sent home on PPI, came to my office, was complaining of same thing that she is burping a lot and she has no control on burps and at times she has difficulty swallowing and I referred her to Dr. Grande who arranged for an endoscopy. According to him when he tried to give her water in the office, she was unable to swallow, so she end up having endoscopy today and her endoscopy is clean with no esophagitis or gastric ulcer. So, she is being admitted for further workup to rule out neurological causes. She denies any headaches. No nausea or vomiting. The patient states that she feel she is getting weaker because not eating that well and complaint of feeling bloated. She was recently given some exercises for her neck. She states that also might have contributed to her symptoms. The patient has also lot of other vague complaints. Denies any rectal bleeding. No hemoptysis. PAST MEDICAL HISTORY: She has past medical history significant for hypertension and hyperlipidemia. Also has history of degenerative disk disease and kyphoscoliosis. PAST SURGICAL HISTORY: Significant for history of right breast lumpectomy followed by mastectomy. ALLERGIES: SHE IS ALLERGIC TO PENICILLIN. MEDICATIONS AT HOME: She is on Travatan, she is on multivitamin, she takes vitamin D, she is on Biotin for . She takes Edarbi 80 mg daily and simvastatin 5 mg 3 times a week. SOCIAL HISTORY: She is a retired teacher. Denies smoking, drinking, or alcohol use. She socially drink wine here and there. REVIEW OF SYSTEMS: Significant for bloating, excessive gas and at times difficulty swallowing. PHYSICAL EXAMINATION: GENERAL: She is anxious, awake, alert, oriented, and communicative. VITAL SIGNS: She is afebrile, pulse 85, respirations 17, and blood pressure 156/74. LUNGS: Bilateral fair airflow. No rhonchi or crackles. HEART: S1 and S2 audible. ABDOMEN: Soft and nontender. She has some kyphosis and scoliosis. NEUROLOGIC: She is awake and alert and communicative. LABORATORY DATA: WBC is 6.0, hemoglobin 13, hematocrit 38.7, and platelet 222. PT 11.4 and INR 1.06. Chemistry; sodium 140, potassium 4.2, chloride 103, CO2 of 24, BUN 11, creatinine 0.7, and blood sugar of 90. Urine shows positive blood and trace leukocyte. She has CT scan of the abdomen and pelvis done on 07/06/2017 shows atelectasis changes at bilateral lung bases. ASSESSMENT AND PLAN: Liquid dysphagia, etiology unclear. Endoscopy is negative, rule out ENT versus neurological causes. We will start the patient on IV fluids. I will start her on her usual medication and get ENT consult by Dr. Murillo and get neuro evaluation by Dr. Steve Arriola and ordered for an MRI of the brain. We will followup this patient in a.m. Mello Bell MD
--- NOTE | 2017-07-15 10:10 | CP.PCM.PN ---
Subjective - Date & Time of Evaluation Date of Evaluation: 07/15/17 Time of Evaluation: 08:00 - Subjective Subjective: GI PROGRESS NOTE FOR DR. RANKIN Patient seen and examined at bedside. She had EGD yesterday which was did not show any obstructing lesions in the upper esophagus. There was some mild congestion of the pharyngeal area. Patient is currently on a pureed diet and reports that she is able to eat it and is able to drink in small sips. Objective - Vital Signs/Intake and Output Vital Signs (last 24 hours): Temp Pulse Resp BP Pulse Ox 98.6 F 86 20 151/80 H 95 07/15/17 06:00 07/15/17 10:00 07/15/17 06:00 07/15/17 06:00 07/15/17 06:00 Intake and Output: 07/15/17 07/15/17 06:59 18:59 Intake Total 840 Balance 840 - Medications Medications: Current Medications Dextrose/Sodium Chloride (Dextrose 5%/0.9% Ns 1000 Ml) 1,000 mls @ 50 mls/hr IV .Q20H [facility] Last Admin: 07/14/17 18:21 Dose: 50 mls/hr Metoclopramide HCl (Reglan) 5 mg IVP TID [facility] Last Admin: 07/15/17 09:46 Dose: 5 mg Pantoprazole Sodium (Protonix Inj) 40 mg IVP DAILY [facility] Last Admin: 07/15/17 09:46 Dose: 40 mg - Labs Labs: PT 11.4 Seconds (9.9-11.8) 07/14/17 11:31 INR 1.06 (0.93-1.08) 07/14/17 11:31 APTT 30.3 Seconds (23.7-30.8) 07/14/17 11:31 - Constitutional Appears: Non-toxic, No Acute Distress - Head Exam Head Exam: ATRAUMATIC, NORMAL INSPECTION - Neck Exam Neck Exam: Normal Inspection. absent: Lymphadenopathy - Respiratory Exam Respiratory Exam: NORMAL BREATHING PATTERN. absent: Respiratory Distress - Cardiovascular Exam Cardiovascular Exam: +S1, +S2 - GI/Abdominal Exam GI & Abdominal Exam: Soft. absent: Tenderness - Neurological Exam Neurological Exam: Alert, Awake Assessment and Plan - Assessment and Plan (Free Text) Assessment: 77yo F with acute dysphagia with solids and especially liquids of unclear etiology. Endoscopy revealed no foreign body or obstructive changes in the esophagus. There was some mildly congested area. DDx includes neurologic etiology, reflux, ENT etiology, rule out pharyngeal lesions - ENT Dr. Murillo consulted - Neurology Dr. Arriola consulted, Brain MRI done - Neck soft tissue CT: asymmetric decreased aeration of left vallecula without a well-defined mass. Paranasal sinus disease - PPI - Swallow evaluation - Modified barium swallow - Pureed diet - Discussed plan with Dr. Harjinder Canela PGY-3
[2017-07-15 10:55] LABS: THYROID STIMULATING HORMONE 0.58 mIU/mL (0.46-4.68)
[2017-07-15 12:36] VITALS: BP 140/70; RESP 16; TEMP 98
[2017-07-15 16:12] VITALS: PULSE 85
--- NOTE | 2017-07-15 20:26 | CON ---
NEUROLOGY CONSULTATION NOTE DATE: 07/15/2017 REASON FOR CONSULTATION: Difficulty with swallowing. HISTORY OF PRESENTING ILLNESS: The patient is a 77-year-old female who has been asked for evaluation of difficulty with swallowing. As per the patient on 07/06, she ate something and she kept on eating the same thing for 2 days and after that she felt belching and felt that acid was coming up. Since that time, she is having difficulty with swallowing. Apparently, she was having difficulty with liquids more than solids. She denies any focal weakness in the arms or legs. Denies any headaches. Because of these symptoms, she decided to come to the emergency room. REVIEW OF SYSTEMS: Denies any headache, chest pain, shortness of breath, abdominal pain, constipation, diarrhea, dysuria, polyuria, cough, sputum production, focal weakness in the arms or legs, numbness in arms or legs. PAST MEDICAL HISTORY: Includes hypertension, hypercholesterolemia and kyphoscoliosis. PAST SURGICAL HISTORY: Includes right breast lumpectomy followed by mastectomy. ALLERGIES: PENICILLIN. MEDICATIONS: Her current medications include Protonix and Reglan. SOCIAL HISTORY: Denies smoking, use of alcohol or illicit drugs. FAMILY HISTORY: Reviewed and noncontributory to the case. PHYSICAL EXAMINATION: GENERAL: The patient is an elderly pleasant female, in no acute distress. VITAL SIGNS: Her blood pressure is 140/70, heart rate is 82 per minute, breathing at a rate of 16 per minute, and temperature is 98 degrees Fahrenheit. HEENT: Normocephalic and atraumatic. NECK: Supple. There are no carotid bruit. LUNGS: Clear. CARDIOVASCULAR: S1 and S2 audible, no murmurs. ABDOMEN: Soft and nontender with bowel sounds present. NEUROLOGIC: Mental status, the patient is awake, alert, oriented to time, place and person. Speech is fluent. Naming and repetition is normal. Memory and cognition are intact. Cranial Nerve Examination: Pupils are 3 mm bilaterally reactive to light. Visual davalos are full. Extraocular movements are intact. There is no facial asymmetry. The palate is going bilaterally and tongue is midline. Motor Examination: Tone is normal. Power is 5/5 bilaterally in all extremities. Reflexes are +1 and symmetrical. Plantars downgoing bilaterally. Cerebellar examination, [id number] shows no dysmetria. Gait is deferred at the moment. LABORATORY DATA: Reviewed, shows WBC of 6.0, hemoglobin 13.2, hematocrit of 38.7, and platelets of 222. Sodium is 140, potassium 4.2, chloride of 103, carbon dioxide 24, BUN of 11, creatinine 0.7, and glucose of 90. She had MRI of the brain done, which showed no restricted diffusion within the brain to suggest acute ischemic change. There is scattered foci of high FLAIR or signal intensity within the cerebral white matter representing chronic small vessel ischemic disease, atrophy. IMPRESSION: Dysphagia, which is possibly secondary to acidity; however, a myasthenia gravis to be ruled out as well as any thyroid dysfunction. RECOMMENDATIONS: 1. The patient to have T4 and TSH. 2. The patient also to have acetylcholine receptor antibodies. 3. The patient to be continued on Protonix. 4. If the patient's dysphagia symptoms continue and the above blood work does not reveal any abnormalities and consider obtaining single fibre electromyography, which needs to be done as an outpatient possibly in the [facility]. 5. Please continue other treatment and supportive care. Thank you for the opportunity to participate in the care of this patient. Steve Arriola MD
--- NOTE | 2017-07-16 07:05 | DS ---
HISTORY OF PRESENT ILLNESS: The patient is 77 years old, seen and examined, doing well, anxious to go home. She states she is eating well. No evidence of dysphagia. PHYSICAL EXAMINATION: VITAL SIGNS: She is afebrile, pulse 82, respirations 16, and blood pressure 140/70. LUNGS: Bilateral fair airflow. No rhonchi or crackles. HEART: S1 and S2 audible. ABDOMEN: Soft and nontender. No rebound, no guarding. NEUROLOGIC: The patient is awake and alert, able to communicate, ambulatory. MRI of the brain is unremarkable for any acute event. A CT scan of the neck shows asymmetric decrease in aeration of the left vallecula without a well-defined mass. Clinical correlation is recommended. Paranasal sinus disease is noted. ASSESSMENT AND PLAN: 1. Questionable dysphagia with complaint of aerophagia, complaint of excessive burping. 2. Hypertension. 3. Hyperlipidemia. Workup in hospital, she had endoscopy done that is unremarkable. She had soft tissue neck swelling that showed some asymmetry in vallecula. MRI of the brain is negative to rule out ischemic event that is unremarkable. So, the plan is the patient is going to be discharged home today. She will follow up with ENT. She will resume all her medications as prior to admission. We will follow up. Mello Bell MD
[2017-07-17 20:26] LABS: AChR BLOCKING ANTIBODIES <15 % inhibit (<15)
== END 2017-07-15 15:44 | disposition home or self-care (01) | DRG 392 ==
LOC: ED 10:12 → ENDO 11:59 → OBSVTOIN 17:31 → 2RSO 17:31
PROVIDERS: ADMIT Internal Medicine Gastroenterology; ATTEND Internal Medicine
PROC: 0DB68ZX Excision of Stomach, Via Natural or Artificial Opening Endoscopic, Diagnostic (ICD-10-PCS; principal; 2017-07-14 14:15)
DX: R13.10 Dysphagia, unspecified (principal); K26.9 Duodenal ulcer, unspecified as acute or chronic, without hemorrhage or perforation; F45.8 Other somatoform disorders; I10 Essential (primary) hypertension; R22.1 Localized swelling, mass and lump, neck; K29.50 Unspecified chronic gastritis without bleeding; E78.00 Pure hypercholesterolemia, unspecified; K59.00 Constipation, unspecified; M41.9 Scoliosis, unspecified; Z85.3 Personal history of malignant neoplasm of breast; Z90.11 Acquired absence of right breast and nipple; Z88.0 Allergy status to penicillin

== ENCOUNTER 2017-08-07 21:52 | Emergency (ER) | payer MEDICARE, BC ==
[2017-08-07 22:02] VITALS: BMI 19.8
[2017-08-07] MEDS ORDERED: Sodium Chloride 0.9% 1,000 ML IV STA (22:16)
--- NOTE | 2017-08-07 22:31 | ED PDOC ---
Arrival/HPI - General Chief Complaint: GI Problem Time Seen by Provider: 08/07/17 21:54 Historian: Patient - History of Present Illness Narrative History of Present Illness (Text): 08/07/17 22:30 A 77 year old female, whose past medical history includes hypertension, was brought in by EMS to the emergency department complaining of trouble swallowing since the beginning of last month. Patient reports she eats baby foods because chokes when having liquids or solid foods. Patient was given antacids by PMD and notes it hasn't been helping symptoms. Time/Duration: > month Symptom Onset: Sudden Symptom Course: Unchanged Activities at Onset: Rest Context: Home Past Medical History - Provider Review Nursing Documentation Reviewed: Yes - Infectious Disease Hx of Infectious Diseases: None - Cardiac Hx Hypertension: Yes - Pulmonary Hx Respiratory Disorders: No - Neurological Hx Neurological Disorder: No - HEENT Hx HEENT Disorder: No - Renal Hx Renal Disorder: No - Endocrine/Metabolic Hx Endocrine Disorders: No - Hematological/Oncological Hx Blood Disorders: No - Integumentary Hx Dermatological Disorder: No - Musculoskeletal/Rheumatological Hx Musculoskeletal Disorders: Yes Hx Falls: No Hx Osteoporosis: Yes - Gastrointestinal Hx Gastroesophageal Reflux: Yes - Genitourinary/Gynecological Hx Genitourinary Disorders: No - Psychiatric Hx Psychophysiologic Disorder: No Hx Substance Use: No - Surgical History Hx Mastectomy: Yes (R. breast) - Anesthesia Hx Anesthesia: Yes Hx Anesthesia Reactions: No Hx Malignant Hyperthermia: No - Suicidal Assessment Feels Threatened In Home Enviroment: No Family/Social History - Physician Review Nursing Documentation Reviewed: Yes Family/Social History: Other (non contributory) Smoking Status: Never Smoked Hx Alcohol Use: No Hx Substance Use: No Allergies/Home Meds Allergies/Adverse Reactions: Allergies Penicillins Allergy (Mild, Verified 08/07/17 22:02) SL REDNESS Home Medications: Home Meds Medication Instructions Recorded Confirmed Azilsartan Medoxomil [Edarbi] 80 mg PO QAM 12/18/15 08/07/17 Biotin [Hard Nails] 5,000 mcg PO DAILY 12/18/15 08/07/17 Calcium Carbonate/Vitamin D3 1 each PO DAILY 12/18/15 08/07/17 [Caltrate 600 + D Tablet] Cholecalciferol (Vitamin D3) 2,000 unit PO DAILY 12/18/15 08/07/17 [Vitamin D-3] Multivit-Min/FA/Lycopen/Lutein 1 each PO DAILY 12/18/15 08/07/17 [Centrum Silver Tablet] [place]-3/Dha/Epa/Fish Oil [Fish Oil] 1,000 mg PO DAILY 12/18/15 08/07/17 Simvastatin 5 mg PO QOTHERDAY 12/18/15 08/07/17 Travoprost [Travatan Z 5 ml] 5 ml OU DAILY 07/14/17 08/07/17 Review of Systems - Physician Review All systems were reviewed & negative as marked: Yes - Review of Systems Constitutional: absent: Fevers ENT: Other (difficulty swallowing) Gastrointestinal: Diarrhea. absent: Abdominal Pain, Nausea, Vomiting Physical Exam Vital Signs Reviewed: Yes Vital Signs Temp Pulse Resp BP Pulse Ox 08/08/17 05:00 98.1 F 78 16 132/74 99 08/08/17 02:00 80 16 132/80 99 08/07/17 22:05 98.8 F 18 152/77 H 97 Appearance: Positive for: Well-Appearing, Non-Toxic, Comfortable Pain Distress: None Mental Status: Positive for: Alert and Oriented X 3 - Systems Exam Head: Present: Atraumatic, Normocephalic Pupils: Present: PERRL Extroacular Muscles: Present: EOMI Conjunctiva: Present: Normal Mouth: Present: Moist Mucous Membranes Neck: Present: Normal Range of Motion Respiratory/Chest: Present: Clear to Auscultation, Good Air Exchange. No: Respiratory Distress, Accessory Muscle Use Cardiovascular: Present: Regular Rate and Rhythm, Normal S1, S2. No: Murmurs Abdomen: Present: Normal Bowel Sounds. No: Tenderness, Distention, Peritoneal Signs Back: Present: Normal Inspection Upper Extremity: Present: Normal Inspection. No: Cyanosis, Edema Lower Extremity: Present: Normal Inspection. No: Edema Neurological: Present: GCS=15, CN II-XII Intact, Speech Normal Skin: Present: Warm, Dry, Normal Color. No: Rashes Psychiatric: Present: Alert, Oriented x 3, Normal Insight, Normal Concentration Medical Decision Making ED Course and Treatment: 08/07/17 22:28 Notes and results from previous visits were reviewed. Patient was admitted on for evaluation of similar symptoms. 08/07/17 23:00 Chest xray: No acute findings, interpreted by me. 08/07/17 23:[address] Bell who states patient was admitted for this issue recently and doesn't believe there is indication for admission at this time. She recommends follow up with Dr. Grande next week. The pt tolerated po without any choking or difficulty in the emergency department however when I began to discuss discharge she became upset and insisted she is unable to swallow and that her throat "feels dry." Again she drank juice, water, and ate pudding all without any apparent difficulty. Her workup last month for dysphagia was, I believe, extensive and although there was some further testing recommended this was on an outpt basis at another facility. I did have the psychiatry service evaluate her and they deemed her stable for discharge from their standpoint. After they finished their evaluation the pt was agreeable to discharge home and v/u of plan for follow up. - Lab Interpretations Lab Results: 08/07/17 22:45 08/07/17 22:45 Lab Results 08/07/17 22:45: Sodium 135, Potassium 4.6, Chloride 98, Carbon Dioxide 27, Anion Gap 15, BUN 11, Creatinine 0.8, Est GFR ( Amer) > 60, Est GFR (Non- Af Amer) > 60, Random Glucose 120 H, Calcium 9.8, Total Bilirubin 0.5, AST 30, ALT 48, Alkaline Phosphatase 66, Troponin I < 0.01, Total Protein 6.6, Albumin 4.2, Globulin 2.5, Albumin/Globulin Ratio 1.7 08/07/17 22:45: WBC 5.2, RBC 4.29, Hgb 12.8, Hct 38.2, MCV 89.0, MCH 29.8, MCHC 33.5, RDW 13.6, Plt Count 186, MPV 10.3, Gran % 65.3, Lymph % (Auto) 19.9 L, [place] % (Auto) 12.5 H, Eos % (Auto) 2.1, Baso % (Auto) 0.2, Gran # 3.38, Lymph # 1.0 L, Charles # 0.7 H, Eos # 0.1, Baso # 0.01 I have reviewed the lab results: Yes - RAD Interpretation Radiology Orders: 08/07/17 22:18 CHEST PORTABLE [RAD] Stat - Medication Orders Current Medication Orders: Discontinued Medications Sodium Chloride (Sodium Chloride 0.9%) 1,000 mls @ 999 mls/hr IV .Q1H1M STA Stop: 08/07/17 23:16 Last Admin: 08/07/17 22:45 Dose: 999 mls/hr eMAR Start Stop Document 08/07/17 22:45 SC (Rec: 08/07/17 22:45 SC [id number]) Intravenous Solution Start Date 08/07/17 Start Time 22:45 End Date 08/07/17 End time 23:45 Total Infusion Time 60 - Scribe Statement The provider has reviewed the documentation as recorded by the Allibjudie Martinez Provider Scribe Attestation: All medical record entries made by the Scribe were at my direction and personally dictated by me. I have reviewed the chart and agree that the record accurately reflects my personal performance of the history, physical exam, medical decision making, and the department course for this patient. I have also personally directed, reviewed, and agree with the discharge instructions and disposition. Disposition/Present on Arrival - Present on Arrival Any Indicators Present on Arrival: No History of DVT/PE: No History of Uncontrolled Diabetes: No Urinary Catheter: No History of Decub. Ulcer: No History Surgical Site Infection Following: None - Disposition Have Diagnosis and Disposition been Completed?: Yes Diagnosis: Dysphagia, Oral thrush Disposition: HOME/ ROUTINE Disposition Time: 23:18 Condition: STABLE Additional Instructions: Please follow up with your doctor on Thursday. Return to the ER for any worsening symptoms or for any other concerns. Prescriptions: Nystatin [Nystatin Oral Susp] 5 ml PO QID #100 ml Referrals: Mello Bell MD [Primary Care Provider] - Follow up with primary Forms: [employer] (Danish)
[2017-08-07 22:56] LABS: BASO # 0.01 K/mm3 (0.0-2.0); BASO % 0.2 % (0.0-3.0); EOS # 0.1 (0.0-0.7); EOS % 2.1 % (1.5-5.0); GRAN # 3.38 (1.4-6.5); GRAN % 65.3 % (50.0-68.0); HEMATOCRIT 38.2 % (36.0-48.0); LYMPH % 19.9 % (22.0-35.0); MEAN CORPUSCULAR HEMOGLOBIN 29.8 pg (25.0-35.0); MEAN CORPUSCULAR HGB CONC 33.5 g/dl (31.0-37.0); MEAN PLATELET VOLUME 10.3 fl (7.0-11.0); MONO # 0.7 (0.1-0.6); MONO % 12.5 % (1.0-6.0); RED CELL DISTRIBUTION WIDTH 13.6 % (11.5-14.5); WHITE BLOOD COUNT 5.2 10^3/ul (4.5-11.0)
[2017-08-07 23:07] LABS: ALB/GLOB RATIO 1.7 (1.1-1.8); ALKALINE PHOSPHATASE 66 U/L (38-126); ALT/SGPT 48 U/L (7-56); AST/SGOT 30 U/L (14-36); BILIRUBIN,TOTAL 0.5 mg/dL (0.2-1.3); BLOOD UREA NITROGEN 11 mg/dL (7-21); CALCIUM 9.8 mg/dL (8.4-10.5); CARBON DIOXIDE 27 mmol/L (21-33); CHLORIDE 98 mmol/L (98-107); GFR AFRICAN-AMERICAN > 60; GLUCOSE,RANDOM 120 mg/dL (70-110); POTASSIUM 4.6 mmol/L (3.6-5.0); SODIUM 135 mmol/L (132-148); TOTAL PROTEIN 6.6 g/dL (5.8-8.3)
[2017-08-07 23:21] LABS: TROPONIN I < 0.01 ng/mL
[2017-08-08 05:19] VITALS: BP 132/74; PULSE 78; RESP 16; TEMP 98.1; O2SAT 99
--- NOTE | 2017-08-08 09:17 | RAD ---
HISTORY: diff swallowing COMPARISON: Comparison made with CT scan chest abdomen pelvis 07/06/2017 FINDINGS: LUNGS: Note that the lung apices are partially obscured left greater than right by overlying facial soft tissue and mandible artifact PLEURA: No significant pleural effusion identified, no pneumothorax apparent. CARDIOVASCULAR: Heart is mildly enlarged. OSSEOUS STRUCTURES: No significant abnormalities. VISUALIZED UPPER ABDOMEN: Normal. Sleep OTHER FINDINGS: Re- demonstrated are multiple metallic clips in the right axillary region and overlying right upper anterolateral yessenia thorax IMPRESSION: Limited study. No acute infiltrates seen.
== END 2017-08-08 05:00 | disposition home or self-care (01) ==
LOC: ED 21:52
DX: R13.10 Dysphagia, unspecified (principal); B37.0 Candidal stomatitis; I10 Essential (primary) hypertension
CPT/HCPCS: 71010; 80053; 84484; 85025; 96360; 99284; J7040

== ENCOUNTER 2018-10-08 14:06 | Inpatient (IN) | payer MEDICARE, BC ==
--- NOTE | 2018-10-08 14:51 | ED PDOC ---
Arrival/HPI - General Chief Complaint: Chest Pain Time Seen by Provider: 10/08/18 14:12 Historian: Patient - History of Present Illness Narrative History of Present Illness (Text): A 78 year old female, whose past medical history includes hypertension, family hx of Heart disease (brother at age 50) and possible Parkinson's, presents to the emergency department for further evaluation of 3 day duration intermittent chest pain. The patient states that over the last 3 days she would experience the chest tightness. The discomfort woke her from her sleep today. The patient currently denies any pain in the emergency department. She reports she has been eating fast food recently. No tearing chest pain to the back. No trauma or fall. The patient was started on Carbidopa- levodopa for possible Parkinson's disease by her neurologist. The patient denies fevers, chills, headache, dizziness, shortness of breath, dyspnea on exertion, cough, abdominal pain, nausea, vomiting, diarrhea, back pain, neck pain, urinary/bowel changes, or any other complaint. PMD: Dr. Campos Neurologist: Dr. Estes Time/Duration: Other (3 days) Symptom Onset: Sudden Symptom Course: Unchanged Activities at Onset: Rest, Light Context: Home Past Medical History - Provider Review Nursing Documentation Reviewed: Yes - Infectious Disease Hx of Infectious Diseases: None - Cardiac Hx Hypertension: Yes - Pulmonary Hx Respiratory Disorders: No - Neurological Hx Neurological Disorder: No - HEENT Hx HEENT Disorder: No - Renal Hx Renal Disorder: No - Endocrine/Metabolic Hx Endocrine Disorders: No - Hematological/Oncological Hx Blood Disorders: No - Integumentary Hx Dermatological Disorder: No - Musculoskeletal/Rheumatological Hx Musculoskeletal Disorders: Yes Hx Falls: No Hx Osteoporosis: Yes - Gastrointestinal Hx Gastroesophageal Reflux: Yes - Genitourinary/Gynecological Hx Genitourinary Disorders: No - Psychiatric Hx Psychophysiologic Disorder: No Hx Substance Use: No - Surgical History Hx Mastectomy: Yes (R. breast) - Anesthesia Hx Anesthesia: Yes Hx Anesthesia Reactions: No Hx Malignant Hyperthermia: No - Suicidal Assessment Feels Threatened In Home Enviroment: No Family/Social History - Physician Review Nursing Documentation Reviewed: Yes Family/Social History: No Known Family HX Smoking Status: Never Smoked Hx Alcohol Use: No Hx Substance Use: No Allergies/Home Meds Allergies/Adverse Reactions: Allergies Penicillins Allergy (Mild, Verified 10/08/18 14:21) SL REDNESS Home Medications: Home Meds Medication Instructions Recorded Confirmed Azilsartan Medoxomil [Edarbi] 80 mg PO QAM 12/18/15 10/08/18 Biotin [Hard Nails] 5,000 mcg PO DAILY 12/18/15 10/08/18 Calcium Carbonate/Vitamin D3 1 each PO DAILY 12/18/15 10/08/18 [Caltrate 600 + D Tablet] Cholecalciferol (Vitamin D3) 2,000 unit PO DAILY 12/18/15 10/08/18 [Vitamin D-3] Multivit-Min/FA/Lycopen/Lutein 1 each PO DAILY 12/18/15 10/08/18 [Centrum Silver Tablet] [place]-3/Dha/Epa/Fish Oil [Fish Oil] 1,000 mg PO DAILY 12/18/15 10/08/18 Simvastatin 5 mg PO QOTHERDAY 12/18/15 10/08/18 Travoprost [Travatan Z 5 ml] 5 ml OU DAILY 07/14/17 10/08/18 Review of Systems - Physician Review All systems were reviewed & negative as marked: Yes - Review of Systems Constitutional: absent: Fevers, Night Sweats Eyes: absent: Vision Changes ENT: absent: Hearing Changes Respiratory: absent: SOB, Cough Cardiovascular: Chest Pain. absent: Palpitations, Edema, Calf Pain, TADEO, Orthopnea, Syncope Gastrointestinal: absent: Abdominal Pain, Stool Changes, Diarrhea, Nausea, Vomiting, Appetite Changes, Hematochezia, Hematemesis Genitourinary Female: absent: Dysuria, Frequency, Hematuria, Urine Output Changes Musculoskeletal: absent: Back Pain, Neck Pain Skin: absent: Rash, Pruritis Neurological: absent: Headache, Dizziness Endocrine: absent: Diaphoresis, Polyuria Physical Exam Vital Signs Reviewed: Yes Vital Signs Temp Pulse Resp BP Pulse Ox 10/08/18 14:36 98.4 F 78 18 140/70 96 Temperature: Afebrile Blood Pressure: Normal Pulse: Regular Respiratory Rate: Normal Appearance: Positive for: Well-Appearing, Non-Toxic, Comfortable Pain Distress: None Mental Status: Positive for: Alert and Oriented X 3 - Systems Exam Head: Present: Atraumatic, Normocephalic Pupils: Present: PERRL Extroacular Muscles: Present: EOMI Conjunctiva: Present: Normal Ears: Present: Normal Mouth: Present: Moist Mucous Membranes Neck: Present: Normal Range of Motion Respiratory/Chest: Present: Clear to Auscultation, Good Air Exchange. No: Respiratory Distress, Accessory Muscle Use Cardiovascular: Present: Regular Rate and Rhythm, Normal S1, S2. No: Murmurs Abdomen: No: Tenderness, Distention, Peritoneal Signs Back: Present: Normal Inspection. No: CVA Tenderness Upper Extremity: Present: Normal Inspection, Normal ROM. No: Cyanosis, Edema Lower Extremity: Present: Normal Inspection, Normal ROM. No: Edema Neurological: Present: GCS=15, CN II-XII Intact, Speech Normal Skin: Present: Warm, Dry, Normal Color. No: Rashes Psychiatric: Present: Alert, Oriented x 3, Normal Insight, Normal Concentration Medical Decision Making ED Course and Treatment: Impression: A 78 year old female presents to the emergency department for further evaluation of 3 day duration, intermittent chest tightness. No abdominal pain or fall. No nausea or vomiting. No sob. No orthopnea, pnd or leg swelling. Given family hx, age, last echo/stress 4+ years prior will likely require admission for further trops and echo/stress. Plan: -- EKG -- Chest X-ray -- Labs -- Reassess and disposition Prior Visits: Notes and results from previous visits were reviewed. Progress Notes: 10/08/18 16:26 labs and XR unremarkable pt denies any current cp paged PMD. 10/08/18 16:34 Paged hospitalist: PMD goes to hospitalist: Sandoval Moore accepts pt to his service, requesting cards financial services professional consult placement consult to Dr. Diaz placed Pt in NAD - Lab Interpretations I have reviewed the lab results: Yes - RAD Interpretation Radiology Orders: 10/08/18 14:40 CHEST TWO VIEWS (PA/LAT) [RAD] Stat - EKG Interpretation EKG Interpretation (Text): EKG: Ordered, reviewed, and independently interpreted the EKG. Rate : 83 BPM Rhythm : NSR Interpretation : No STEMI Interpreted by ED Physician: Yes Type: 12 lead EKG - Scribe Statement The provider has reviewed the documentation as recorded by the Scribe Natty Lacey Provider Scribe Attestation: All medical record entries made by the Scribe were at my direction and personally dictated by me. I have reviewed the chart and agree that the record accurately reflects my personal performance of the history, physical exam, medical decision making, and the department course for this patient. I have also personally directed, reviewed, and agree with the discharge instructions and disposition. Disposition/Present on Arrival - Present on Arrival Any Indicators Present on Arrival: No History of DVT/PE: No History of Uncontrolled Diabetes: No Urinary Catheter: No History of Decub. Ulcer: No History Surgical Site Infection Following: None - Disposition Have Diagnosis and Disposition been Completed?: Yes Diagnosis: Chest pain Disposition Time: 16:33 Condition: GOOD Discharge Instructions (ExitCare): Chest Pain (ED) Referrals: Sarwat Campos MD [Primary Care Provider] - Follow up with primary Forms: [employer] (Setswana)
[2018-10-08 15:01] LABS: BASO # 0.02 K/mm3 (0.0-2.0); BASO % 0.4 % (0.0-3.0); EOS # 0.1 (0.0-0.7); EOS % 1.8 % (1.5-5.0); GRAN # 3.49 (1.4-6.5); HEMOGLOBIN 12.7 g/dL (12.0-16.0); LYMPH % 19.1 % (22.0-35.0); MEAN CELL VOLUME 91.6 fl (80.0-105.0); MEAN CORPUSCULAR HEMOGLOBIN 29.5 pg (25.0-35.0); MEAN CORPUSCULAR HGB CONC 32.2 g/dl (31.0-37.0); MEAN PLATELET VOLUME 10.3 fl (7.0-11.0); MONO # 0.6 (0.1-0.6); MONO % 10.7 % (1.0-6.0); RBC 4.3 10^6/uL (3.5-6.1); RED CELL DISTRIBUTION WIDTH 13.9 % (11.5-14.5); WHITE BLOOD COUNT 5.1 10^3/uL (4.5-11.0)
[2018-10-08 15:14] LABS: ALB/GLOB RATIO 1.4 (1.1-1.8); ALT/SGPT 23 U/L (7-56); AST/SGOT 39 U/L (14-36); BLOOD UREA NITROGEN 19 mg/dL (7-21); CALCIUM 9.1 mg/dL (8.4-10.5); GFR NON-AFRICAN AMERICAN > 60
[2018-10-08 15:23] LABS: TROPONIN I < 0.01 ng/mL
--- NOTE | 2018-10-08 16:46 | RAD ---
Date of service: 10/08/2018 HISTORY: cp COMPARISON: 08/07/2017 TECHNIQUE: Chest PA and lateral FINDINGS: LUNGS: No active pulmonary disease. PLEURA: No significant pleural effusion identified. No pneumothorax apparent. CARDIOVASCULAR: No aortic atherosclerotic calcification present. Normal cardiac size. No pulmonary vascular congestion. OSSEOUS STRUCTURES: No significant abnormalities. VISUALIZED UPPER ABDOMEN: Normal. OTHER FINDINGS: None. IMPRESSION: No active disease. No significant interval change compared to the prior examination(s). Concordant results with the preliminary interpretation rendered by the emergency department physician procedure.
--- NOTE | 2018-10-08 17:33 | CP.PCM.HP ---
<AdonisLittle - Last Filed: 10/08/18 18:45> History of Present Illness - History of Present Illness History of Present Illness: Anabel Lamb, PGY-1 Medicine H&P Note for Dr. Nick: CC: Chest tightness x 3 days. Pt is a 78 yo F with pmhx of Breast ca s/p mastectomy and chemo/radiation, HTN and Parkinsons who presents for 3 day hx of intermittent chest pain. She reports that she has been having this chest pain after meals when she would lay down. She states that the chest pain happens every night at the same time @ 10pm and described the pain as chest pressure that lasts for about 5 minutes and is alleviated by sitting up and by eating. She states that each episode was self-resolving and she did not need to take an ASA or any other medications and the pain resolved spontaneously. She rates the pain at an 8/10 when it happens but completely resolves shortly after onset. She describes the pain as a chest tightness over her sternum that does not radiate and is not worsened with activity. She reports that this is the first time she has had these symptoms before and has never had any heartburn. At this time she is currently stating that her symptoms of chest tightness have resolved without intervention. She is also denying any fevers, chills, headache, lightheadedness, SOB, cough, dyspnea on exertion, palpitations, abd pain, nausea, vomiting, dysuria, hematuria, weakness or numbness or tingling. Pmhx: Breast ca s/p mastectomy ('98) and chemo/radiation, HTN and Parkinsons Pshx: Mastectomy 98 Meds: Carbidopa-levadopa 25-100 TID, edarbi 40 qd, travatan 5 All: PCN - face flush Soc: Denies any tobacco use, denies etoh or illicit drug use Fam: Mom: ovarian ca, Dad: [place], Brother: [place] Present on Admission - Present on Admission Any Indicators Present on Admission: No Review of Systems - Review of Systems Review of Systems: 12 point ROS reviewed and negative except for noted in HPI above. Past Patient History - Infectious Disease Hx of Infectious Diseases: None - Past Social History Smoking Status: Never Smoked - CARDIAC Hx Hypertension: Yes - PULMONARY Hx Respiratory Disorders: No - NEUROLOGICAL Hx Neurological Disorder: No - HEENT Hx HEENT Problems: No - RENAL Hx Chronic Kidney Disease: No - ENDOCRINE/METABOLIC Hx Endocrine Disorders: No - HEMATOLOGICAL/ONCOLOGICAL Hx Blood Disorders: No - INTEGUMENTARY Hx Dermatological Problems: No - MUSCULOSKELETAL/RHEUMATOLOGICAL Hx Musculoskeletal Disorders: Yes Hx Falls: No Hx Osteoporosis: Yes - GASTROINTESTINAL Hx Gastroesophageal Reflux: Yes - GENITOURINARY/GYNECOLOGICAL Hx Genitourinary Disorders: No - PSYCHIATRIC Hx Psychophysiologic Disorder: No Hx Substance Use: No - SURGICAL HISTORY Hx Mastectomy: Yes (R. breast) - ANESTHESIA Hx Anesthesia: Yes Hx Anesthesia Reactions: No Hx Malignant Hyperthermia: No Meds Allergies/Adverse Reactions: Allergies Allergy/AdvReac Type Severity Reaction Status Date / Time Penicillins Allergy Mild SL REDNESS Verified 10/08/18 14:21 Physical Exam - Constitutional Appears: Well, Non-toxic, No Acute Distress - Head Exam Head Exam: ATRAUMATIC, NORMAL INSPECTION, NORMOCEPHALIC - Eye Exam Eye Exam: EOMI, Normal appearance, PERRL - Respiratory Exam Respiratory Exam: Clear to Auscultation Bilateral, NORMAL BREATHING PATTERN. absent: Accessory Muscle Use, Decreased Breath Sounds, Rales, Rhonchi, Wheezes, Respiratory Distress, Stridor - Cardiovascular Exam Cardiovascular Exam: RRR, +S1, +S2. absent: Gallop, Rubs - GI/Abdominal Exam GI & Abdominal Exam: Normal Bowel Sounds, Soft. absent: Distended, Firm, Guarding, Tenderness - Extremities Exam Extremities exam: Positive for: normal capillary refill, pedal pulses present. Negative for: calf tenderness, pedal edema - Back Exam Back exam: NORMAL INSPECTION. absent: CVA tenderness (L), CVA tenderness (R) - Neurological Exam Neurological exam: Alert, Oriented x3 - Psychiatric Exam Psychiatric exam: Normal Affect, Normal Mood - Skin Skin Exam: Dry, Normal Color, Warm Results - Vital Signs Recent Vital Signs: Last Vital Signs Temp 98.6 F 10/08/18 16:07 Pulse 78 10/08/18 16:07 Resp 18 10/08/18 16:07 BP 139/70 10/08/18 16:07 Pulse Ox 98 10/08/18 16:07 - Labs Result Diagrams: 10/08/18 14:50 10/08/18 14:50 Labs: Laboratory Results - last 24 hr 10/08/18 10/08/18 14:50 14:50 WBC 5.1 RBC 4.30 Hgb 12.7 Hct 39.4 MCV 91.6 MCH 29.5 MCHC 32.2 RDW 13.9 Plt Count 209 MPV 10.3 Gran % 68.0 Lymph % (Auto) 19.1 L [place] % (Auto) 10.7 H Eos % (Auto) 1.8 Baso % (Auto) 0.4 Gran # 3.49 Lymph # (Auto) 1.0 L [place] # (Auto) 0.6 Eos # (Auto) 0.1 Baso # (Auto) 0.02 Sodium 139 Potassium 4.4 Chloride 106 Carbon Dioxide 28 Anion Gap 10 BUN 19 Creatinine 0.6 L Est GFR ( Amer) > 60 Est GFR (Non-Af Amer) > 60 Random Glucose 118 H Calcium 9.1 Magnesium 2.1 Total Bilirubin 0.3 AST 39 H D ALT 23 Alkaline Phosphatase 89 Troponin I < 0.01 Total Protein 6.9 Albumin 4.0 Globulin 2.9 Albumin/Globulin Ratio 1.4 Assessment & Plan - Assessment and Plan (Free Text) Assessment: Pt is a 78 yo F with pmhx of Breast ca s/p mastectomy and chemo/radiation, HTN and Parkinsons who presents for 3 day hx of intermittent chest pain. Plan: 1. Chest pain r/o ACS: - Admit to tele - Pt is asymptomatic at this time - Inital trop is (-), f/u serial trops - f/u serial EKG - Echo - TSH - Lipid panel - will f/u on lipid panel as pts PMD advised pt to d/c taking statin - Asa 81qd - Protonix 40 po qd - Simethicone - Hgb A1c - Cardio consult - Dr. Diaz 2. Hx of Parkinsons Disease: - Cont home carbidopa-levodopa 25-100 3. Hx of HTN: - Started Losartan 100 qd (per pharmacy, equivalent dose to pts home med) 4. Hx of Glaucoma: - Started on Xalatan (per pharm, equivalent dose to pts home med) 5. PPX: - GI: Protonix 40 po - DVT: Lovenox Case seen and discussed with Dr. Sandoval Lamb, DO Internal Medicine Resident PGY-1 <Chuy Nick - Last Filed: 10/08/18 19:04> Results - Vital Signs Recent Vital Signs: Last Vital Signs Temp 98.6 F 10/08/18 16:07 Pulse 77 10/08/18 18:00 Resp 16 10/08/18 17:56 BP 139/70 10/08/18 16:07 Pulse Ox 98 10/08/18 16:07 - Labs Result Diagrams: 10/08/18 14:50 10/08/18 14:50 Labs: Laboratory Results - last 24 hr 10/08/18 10/08/18 14:50 14:50 WBC 5.1 RBC 4.30 Hgb 12.7 Hct 39.4 MCV 91.6 MCH 29.5 MCHC 32.2 RDW 13.9 Plt Count 209 MPV 10.3 Gran % 68.0 Lymph % (Auto) 19.1 L [place] % (Auto) 10.7 H Eos % (Auto) 1.8 Baso % (Auto) 0.4 Gran # 3.49 Lymph # (Auto) 1.0 L [place] # (Auto) 0.6 Eos # (Auto) 0.1 Baso # (Auto) 0.02 Sodium 139 Potassium 4.4 Chloride 106 Carbon Dioxide 28 Anion Gap 10 BUN 19 Creatinine 0.6 L Est GFR ( Amer) > 60 Est GFR (Non-Af Amer) > 60 Random Glucose 118 H Calcium 9.1 Magnesium 2.1 Total Bilirubin 0.3 AST 39 H D ALT 23 Alkaline Phosphatase 89 Troponin I < 0.01 Total Protein 6.9 Albumin 4.0 Globulin 2.9 Albumin/Globulin Ratio 1.4 Attending/Attestation - Attestation I have personally seen and examined this patient.: Yes I have fully participated in the care of the patient.: Yes I have reviewed all pertinent clinical information: Yes Notes (Text): Patient seen and examined with the residents, agree with above Reports a 3D h/o chest discomfort after eating the same vegetables in the evening Unlikely cardiac given her negative trop/ekg findings with no significant risk factors except HTN Continue to trend trop. Protonix for possible GERD
[2018-10-08 18:05] VITALS: BMI 18.7
[2018-10-08] MEDS ORDERED: Simethicone 80 mg Chewtab PO PRN (18:12)
[2018-10-08] MEDS ORDERED: Carbidopa/Levodopa 25/100 CR PO ONE (18:24)
--- NOTE | 2018-10-08 18:42 | CARD ---
APPROVED REPORT Date of service: 10/08/2018 EKG Measurement Heart [id number] <Conclusion> Normal sinus rhythm Possible Left atrial enlargement Borderline ECG
--- NOTE | 2018-10-08 20:13 | CARD ---
APPROVED REPORT Date of service: 10/08/2018 EKG Measurement Heart [id number] [id number] <Conclusion> Normal sinus rhythm Left atrial enlargement Abnormal ECG
[2018-10-08] MEDS ORDERED: Latanoprost 2.5 ml Opht Soln OU SCH (22:00)
[2018-10-09] MEDS ORDERED: Pantoprazole 40 mg EC Tab PO SCH (06:00)
[2018-10-09 06:28] LABS: ALB/GLOB RATIO 1.5 (1.1-1.8); ALBUMIN 3.9 g/dL (3.0-4.8); ALT/SGPT 29 U/L (7-56); AST/SGOT 32 U/L (14-36); BLOOD UREA NITROGEN 16 mg/dL (7-21); CALCIUM 9.2 mg/dL (8.4-10.5); GFR NON-AFRICAN AMERICAN > 60; HDL CHOLESTEROL 89 mg/dL (29-60)
[2018-10-09 06:33] LABS: LDL CHOLESTEROL 92 mg/dL (0-129)
[2018-10-09 06:34] LABS: BASO # 0.02 K/mm3 (0.0-2.0); BASO % 0.4 % (0.0-3.0); EOS # 0.2 (0.0-0.7); EOS % 4.3 % (1.5-5.0); GRAN # 2.6 (1.4-6.5); GRAN % 55.3 % (50.0-68.0); HEMOGLOBIN 12.6 g/dL (12.0-16.0); LYMPH # 1.4 (1.2-3.4); LYMPH % 30.6 % (22.0-35.0); MEAN CELL VOLUME 91.2 fl (80.0-105.0); MEAN CORPUSCULAR HEMOGLOBIN 29.3 pg (25.0-35.0); MEAN CORPUSCULAR HGB CONC 32.1 g/dl (31.0-37.0); MEAN PLATELET VOLUME 10.5 fl (7.0-11.0); MONO # 0.4 (0.1-0.6); MONO % 9.4 % (1.0-6.0); RBC 4.3 10^6/uL (3.5-6.1); RED CELL DISTRIBUTION WIDTH 13.6 % (11.5-14.5); WHITE BLOOD COUNT 4.7 10^3/uL (4.5-11.0)
[2018-10-09 06:50] VITALS: O2SAT 99
[2018-10-09] MEDS: Carbidopa/Levodopa 25/100 CR PO SCH ×6 (08:26→21:14)
[2018-10-09] MEDS ORDERED: Enoxaparin 40 mg Syringe SC SCH (10:00)
[2018-10-09] MEDS ORDERED: AZILSARTAN 40 MG PO SCH (10:30)
[2018-10-09 12:50] VITALS: BP 129/77; RESP 18; TEMP 97.9
--- NOTE | 2018-10-09 12:52 | CON ---
DATE OF CONSULTATION: 10/09/2018 HISTORY: The patient is a 78-year-old woman who presented with three episodes of chest pressure. Each were associated after eating, once while eating peanut butter from the jar. Currently, the patient is chest pain free and wants to go home. The patient's past medical history is free of cardiac disease. She is on Sinemet, questionable Parkinson's. SOCIAL HISTORY: The patient denies smoking. Denies shortness of breath. No diabetes mellitus noted. REVIEW OF SYSTEMS: The patient is completely asymptomatic from cardiac symptoms. PHYSICAL EXAMINATION: VITAL SIGNS: Blood pressure 134/77, heart rate is in the 70s. NECK: Negative JVD. LUNGS: Without rales. HEART: S1, S2. EXTREMITIES: Without edema. DIAGNOSTIC DATA: EKG shows normal sinus rhythm with no acute changes. Hemoglobin is 12.6. Troponins are negative x3. BUN and creatinine are unremarkable. IMPRESSION: 1. Atypical chest pain. 2. Rule out GI causes of her symptoms. 3. No evidence for acute coronary syndrome. 4. Questionable Parkinson's PLAN: Given these findings, we will discontinue telemetry today. The patient can be discharged from a cardiac perspective. I have given the patient an appointment for an outpatient stress test, which we will do next week. Deni Diaz MD
--- NOTE | 2018-10-09 14:39 | CARD ---
APPROVED REPORT Date of service: 10/09/2018 EKG Measurement Heart [id number] <Conclusion> Normal sinus rhythm Left atrial enlargement Rightward axis Borderline ECG
[2018-10-09 14:43] VITALS: PULSE 71
--- NOTE | 2018-10-09 17:24 | CP.PCM.DIS ---
<Uriel Trivedi - Last Filed: 10/09/18 17:21> Provider - Provider Date of Admission: 10/08/18 16:32 Attending physician: Chuy Nick Primary care physician: Sarwat Campos MD Consults: 10/08/18 16:31 Consult [Physician Consult] Routine Comment: Consulting Provider: Deni Diaz Consulting Physician: Deni Diaz Reason for Consult: cp 10/08/18 18:12 Cardiology Consult Routine Comment: Consulting Provider: Deni Diaz Consulting Physician: Deni Diaz Reason for Consult: R/o ACS Time Spent in preparation of Discharge (in minutes): 45 Diagnosis - Discharge Diagnosis (1) Chest pain Status: Resolved Hospital Course - Lab Results Lab Results: Most Recent Lab Values WBC 4.7 10^3/uL (4.5-11.0) 10/09/18 04:45 RBC 4.30 10^6/uL (3.5-6.1) 10/09/18 04:45 Hgb 12.6 g/dL (12.0-16.0) 10/09/18 04:45 Hct 39.2 % (36.0-48.0) 10/09/18 04:45 MCV 91.2 fl (80.0-105.0) 10/09/18 04:45 MCH 29.3 pg (25.0-35.0) 10/09/18 04:45 MCHC 32.1 g/dl (31.0-37.0) 10/09/18 04:45 RDW 13.6 % (11.5-14.5) 10/09/18 04:45 Plt Count 208 10^3/uL (120.0-450.0) 10/09/18 04:45 MPV 10.5 fl (7.0-11.0) 10/09/18 04:45 Gran % 55.3 % (50.0-68.0) 10/09/18 04:45 Lymph % (Auto) 30.6 % (22.0-35.0) 10/09/18 04:45 Rich % (Auto) 9.4 % (1.0-6.0) H 10/09/18 04:45 Eos % (Auto) 4.3 % (1.5-5.0) 10/09/18 04:45 Baso % (Auto) 0.4 % (0.0-3.0) 10/09/18 04:45 Gran # 2.60 (1.4-6.5) 10/09/18 04:45 Lymph # (Auto) 1.4 (1.2-3.4) 10/09/18 04:45 Rich # (Auto) 0.4 (0.1-0.6) 10/09/18 04:45 Eos # (Auto) 0.2 (0.0-0.7) 10/09/18 04:45 Baso # (Auto) 0.02 K/mm3 (0.0-2.0) 10/09/18 04:45 Sodium 140 mmol/L (132-148) 10/09/18 04:45 Potassium 4.3 mmol/L (3.6-5.0) 10/09/18 04:45 Chloride 105 mmol/L (98-107) 10/09/18 04:45 Carbon Dioxide 30 mmol/L (21-33) 10/09/18 04:45 Anion Gap 8 (10-20) L 10/09/18 04:45 BUN 16 mg/dL (7-21) 10/09/18 04:45 Creatinine 0.7 mg/dl (0.7-1.2) 10/09/18 04:45 Est GFR ( Amer) > 60 10/09/18 04:45 Est GFR (Non-Af Amer) > 60 10/09/18 04:45 Random Glucose 88 mg/dL (70-110) 10/09/18 04:45 Calcium 9.2 mg/dL (8.4-10.5) 10/09/18 04:45 Magnesium 2.1 mg/dL (1.7-2.2) 10/08/18 14:50 Total Bilirubin 0.4 mg/dL (0.2-1.3) 10/09/18 04:45 AST 32 U/L (14-36) 10/09/18 04:45 ALT 29 U/L (7-56) 10/09/18 04:45 Alkaline Phosphatase 86 U/L (38-126) 10/09/18 04:45 Troponin I < 0.01 ng/mL 10/09/18 03:15 Total Protein 6.4 g/dL (5.8-8.3) 10/09/18 04:45 Albumin 3.9 g/dL (3.0-4.8) 10/09/18 04:45 Globulin 2.5 gm/dL 10/09/18 04:45 Albumin/Globulin Ratio 1.5 (1.1-1.8) 10/09/18 04:45 Triglycerides 44 mg/dL (35-160) 10/09/18 04:45 Cholesterol 199 mg/dL (130-200) 10/09/18 04:45 LDL Cholesterol Direct 92 mg/dL (0-129) 10/09/18 04:45 HDL Cholesterol 89 mg/dL (29-60) H 10/09/18 04:45 TSH 3rd Generation 1.30 mIU/mL (0.46-4.68) 10/08/18 20:33 - Hospital Course Hospital Course: HPI on admission: "Pt is a 78 yo F with pmhx of Breast ca s/p mastectomy and chemo/radiation, HTN and Parkinsons who presents for 3 day hx of intermittent chest pain. She reports that she has been having this chest pain after meals when she would lay down. She states that the chest pain happens every night at the same time @ 10pm and described the pain as chest pressure that lasts for about 5 minutes and is alleviated by sitting up and by eating. She states that each episode was self- resolving and she did not need to take an ASA or any other medications and the pain resolved spontaneously. She rates the pain at an 8/10 when it happens but completely resolves shortly after onset. She describes the pain as a chest tightness over her sternum that does not radiate and is not worsened with activity. She reports that this is the first time she has had these symptoms before and has never had any heartburn. At this time she is currently stating that her symptoms of chest tightness have resolved without intervention. She is also denying any fevers, chills, headache, lightheadedness, SOB, cough, dyspnea on exertion, palpitations, abd pain, nausea, vomiting, dysuria, hematuria, weakness or numbness or tingling." Hospital Course: Pt was admitted for chest pain and r/o ACS. Troponins were negative x3. EKGs demonstrated no acute St-T wave changes. Pt was started on ASA therapy. Cardiology was consulted (Dr. Diaz), who cleared the patient for discharge from a cardiac perspective. Pt was given script at discharge to contact the office for outpatient stress test, instructed to call Thursday10/11/18 to get appointment for stress test for Thursday10/12/18. To follow up with Dr. Diaz within 1 week of hospital discharge. Pt stated on day of discharge that chest pain resolved. Pt was instructed to resume home medications as prescribed. Was given script for daily ASA therapy. Also was instructed to follow-up with her PMD Dr. Campos within 1 week of hospital discharge. Was instructed to return to the ED if her symptoms reappeared or worsened. Fur further details of admission, please refer to EMR. Discharge Exam - Head Exam Head Exam: ATRAUMATIC, NORMAL INSPECTION, NORMOCEPHALIC - Eye Exam Eye Exam: EOMI, Normal appearance, PERRL - ENT Exam ENT Exam: Mucous Membranes Moist - Respiratory Exam Respiratory Exam: Clear to PA & Lateral, NORMAL BREATHING PATTERN, UNREMARKABLE. absent: Chest Wall Tenderness - Cardiovascular Exam Cardiovascular Exam: REGULAR RHYTHM, +S1, +S2. absent: Gallop, Rubs, Systolic Murmur - GI/Abdominal Exam GI & Abdominal Exam: Normal Bowel Sounds, Soft, Unremarkable. absent: Tenderness - Extremities Exam Extremities exam: full ROM, normal capillary refill, normal inspection, pedal pulses present - Neurological Exam Neurological exam: Alert, CN II-XII Intact, Oriented x3 - Skin Skin Exam: Dry, Intact, Normal Color, Warm Discharge Plan - Discharge Medications Prescriptions: RX: Aspirin [Aspirin Chewable] 81 mg PO DAILY #15 chew - Follow Up Plan Condition: GOOD Disposition: HOME/ ROUTINE Instructions: Chest Pain (DC), Heart Disease in Women (DC), Chest Pain (DC), Chest Pain (GEN) Additional Instructions: Please follow-up with your primary care physician (Dr. Campos) within 3-5 days of hospital discharge. Please follow-up with Cardiology (Dr. Diaz) within 1 week of discharge. You will need to call on Thursday10/11/18 to schedule an appointment for a Stress Test as an outpatient as you have been instructed by Dr. Diaz. A prescription has been provided to you by Dr. Diaz. Continue your home medications as prescribed. Take ASA 81mg PO daily until you have seen the computer programming manager, Dr. Diaz. If your symptoms recur or worsen, please call your primary care physician or report to your nearest emergency department. Referrals: Sarwat Campos MD [Primary Care Provider] - Deni Diaz MD [Staff Provider] - <Yeni Tamayo - Last Filed: 10/11/18 08:43> Provider - Provider Date of Admission: 10/08/18 16:32 Attending physician: Chuy Nick Primary care physician: Sarwat Campos MD Consults: 10/08/18 16:31 Consult [Physician Consult] Routine Comment: Consulting Provider: Deni Diaz Consulting Physician: Deni Diaz Reason for Consult: cp 10/08/18 18:12 Cardiology Consult Routine Comment: Consulting Provider: Deni Diaz Consulting Physician: Deni Diaz Reason for Consult: R/o ACS Hospital Course - Lab Results Lab Results: Most Recent Lab Values WBC 4.7 10^3/uL (4.5-11.0) 10/09/18 04:45 RBC 4.30 10^6/uL (3.5-6.1) 10/09/18 04:45 Hgb 12.6 g/dL (12.0-16.0) 10/09/18 04:45 Hct 39.2 % (36.0-48.0) 10/09/18 04:45 MCV 91.2 fl (80.0-105.0) 10/09/18 04:45 MCH 29.3 pg (25.0-35.0) 10/09/18 04:45 MCHC 32.1 g/dl (31.0-37.0) 10/09/18 04:45 RDW 13.6 % (11.5-14.5) 10/09/18 04:45 Plt Count 208 10^3/uL (120.0-450.0) 10/09/18 04:45 MPV 10.5 fl (7.0-11.0) 10/09/18 04:45 Gran % 55.3 % (50.0-68.0) 10/09/18 04:45 Lymph % (Auto) 30.6 % (22.0-35.0) 10/09/18 04:45 Rich % (Auto) 9.4 % (1.0-6.0) H 10/09/18 04:45 Eos % (Auto) 4.3 % (1.5-5.0) 10/09/18 04:45 Baso % (Auto) 0.4 % (0.0-3.0) 10/09/18 04:45 Gran # 2.60 (1.4-6.5) 10/09/18 04:45 Lymph # (Auto) 1.4 (1.2-3.4) 10/09/18 04:45 Rich # (Auto) 0.4 (0.1-0.6) 10/09/18 04:45 Eos # (Auto) 0.2 (0.0-0.7) 10/09/18 04:45 Baso # (Auto) 0.02 K/mm3 (0.0-2.0) 10/09/18 04:45 Sodium 140 mmol/L (132-148) 10/09/18 04:45 Potassium 4.3 mmol/L (3.6-5.0) 10/09/18 04:45 Chloride 105 mmol/L (98-107) 10/09/18 04:45 Carbon Dioxide 30 mmol/L (21-33) 10/09/18 04:45 Anion Gap 8 (10-20) L 10/09/18 04:45 BUN 16 mg/dL (7-21) 10/09/18 04:45 Creatinine 0.7 mg/dl (0.7-1.2) 10/09/18 04:45 Est GFR ( Amer) > 60 10/09/18 04:45 Est GFR (Non-Af Amer) > 60 10/09/18 04:45 Random Glucose 88 mg/dL (70-110) 10/09/18 04:45 Hemoglobin A1c 5.9 % (4.2-6.5) 10/08/18 20:33 Calcium 9.2 mg/dL (8.4-10.5) 10/09/18 04:45 Magnesium 2.1 mg/dL (1.7-2.2) 10/08/18 14:50 Total Bilirubin 0.4 mg/dL (0.2-1.3) 10/09/18 04:45 AST 32 U/L (14-36) 10/09/18 04:45 ALT 29 U/L (7-56) 10/09/18 04:45 Alkaline Phosphatase 86 U/L (38-126) 10/09/18 04:45 Troponin I < 0.01 ng/mL 10/09/18 03:15 Total Protein 6.4 g/dL (5.8-8.3) 10/09/18 04:45 Albumin 3.9 g/dL (3.0-4.8) 10/09/18 04:45 Globulin 2.5 gm/dL 10/09/18 04:45 Albumin/Globulin Ratio 1.5 (1.1-1.8) 10/09/18 04:45 Triglycerides 44 mg/dL (35-160) 10/09/18 04:45 Cholesterol 199 mg/dL (130-200) 10/09/18 04:45 LDL Cholesterol Direct 92 mg/dL (0-129) 10/09/18 04:45 HDL Cholesterol 89 mg/dL (29-60) H 10/09/18 04:45 TSH 3rd Generation 1.30 mIU/mL (0.46-4.68) 10/08/18 20:33 Attending/Attestation - Attestation I have personally seen and examined this patient.: Yes I have fully participated in the care of the patient.: Yes I have reviewed all pertinent clinical information, including history, physical exam and plan: Yes Notes (Text): Patient seen and examined by me with resident 9:35AM on 10/09/18. Case including discharge plan discussed with resident. Agree with above with following additions/corrections. Patient is a 78-year-old female past medical history significant for breast cancer status post mastectomy and chemoradiation, hypertension, and Parkinson's disease that presented to the emergency room with 3 day history of intermittent chest pain. Please see H&P for full details. Patient was admitted with chest pain rule out acute coronary syndrome, Parkinson's disease, hypertension, and glaucoma. Patient was admitted to telemetry. Patient described the chest pain as "chest tightness." Patient asymptomatic in the hospital. TSH within normal limits. LDL is 92, total cholesterol is 199, triglycerides 44, and HDL was 89. Troponins were within normal limits. 2-D echo per computer programming manager showed moderate concentric left ventricular hypertrophy, left ventricular function is normal, left ventricular ejection fraction is within normal range, normal LV segmental wall motion, and transmitral Doppler flow pattern is a grade 2 pseudo-normal filling dynamics, moderate tricuspid regurgitation, moderate pulmonary hypertension. Patient was seen by computer programming manager Dr. Diaz. Per Dr. Diaz patient with atypical chest pain. Patient was cleared for discharge by cardiology. Patient was given a prescription by computer programming manager for outpatient stress test. She was maintained on aspirin and Protonix. She was advised to follow-up with her primary care doctor for possible GERD workup. Patient was continued on her carbidopa levodopa for Parkinson's disease. Patient was continued on her blood pressure medication. Patient was continued on her medications for glaucoma. Patient was feeling much better and wanted to go home. She was cleared for discharge by cardiology. Patient was discharged home. On day of discharge, patient states she is feeling much better and wants to go home. Patient states she has not experienced the "chest tightness" while being in the hospital. No chest pain or palpitations. No shortness of breath. No abdominal pain. No nausea or vomiting. No headaches or dizziness. No fevers or chills. No dysuria. Physical exam: General: Awake and lying sitting up in chair in no acute distress HEENT: Normocephalic, atraumatic. Extraocular muscles intact, pupils equal and reactive, no scleral icterus. Oropharynx is pink and moist. Neck is supple. Cardiovascular: Regular rhythm. Normal S1 and S2. No murmurs, rubs, or gallops appreciated Pulmonary: Normal respiratory effort. No rhonchi, rales, or wheezing appreciated. Gastrointestinal: Soft, nondistended. Nontender. Positive bowel sounds all 4 quadrants. Musculoskeletal: Moves all extremities. No calf tenderness. No CVA tenderness. Trace lower extremity edema. Central nervous system: AAO x3, CN 2-12 grossly intact. Dermatologic: Skin warm and dry. Please see chart for full details. Follow up instructions: Patient to follow-up with primary care doctor within 3-5 days. Patient to follow-up with his Experimental Technician within 1 week of discharge. Patient to call on 10/11/2018 for stress test as instructed by Dr. Diaz. Patient continue home medications. Patient to take baby aspirin until seen by Dr. Diaz in the office. All instructions explained to patient in detail. Patient both understands and agrees to all instructions. Written instructions also given. Time spent in discharging the patient including chart review, medication reconciliation, discussion with the patient, medical technologist chief, consultants, and nursing staff was approximately 40 minutes.
--- NOTE | 2018-10-09 20:24 | CARD ---
APPROVED REPORT Date of service: 10/09/2018 EXAM: Two-dimensional and M-mode echocardiogram with Doppler and color Doppler. INDICATION CP 2D DIMENSIONS IVSd1.4 (0.7-1.1cm)LVDd3.2 (3.9-5.9cm) PWd1.5 (0.7-1.1cm)LVDs2.3 (2.5-4.0cm) FS (%) 29.4 %LVEF (%)57.8 (>50%) M-Mode DIMENSIONS Left Atrium (MM)3.80 (2.5-4.0cm)Aortic Root3.20 (2.2-3.7cm) Aortic Cusp Exc.1.90 (1.5-2.0cm) Aortic Valve AoV Peak Hwipqpte271.0cm/Perlita Peak GR.18mmHg Mitral Valve MV E Hhnomijb025.0cm/sMV A Hhyrffyz92.3cm/sE/A ratio1.3 TDI Lateral E' Peak V9.07cm/sMedial E' Peak V7.02cm/sE/Lateral E'13.5 E/Medial E'17.4 Tricuspid Valve TR Peak Wtisupsa763tl/sRAP ALSWMZAW84cuJwRK Peak Gr.42mmHg HKWC16icDm LEFT VENTRICLE The left ventricle is normal size. There is moderate concentric left ventricular hypertrophy. The left ventricular function is normal. The left ventricular ejection fraction is within the normal range. There is normal LV segmental wall motion. Transmitral Doppler flow pattern is Grade II-pseudonormal filling dynamics. RIGHT VENTRICLE The right ventricle is normal size. There is normal right ventricular wall thickness. The right ventricular systolic function is normal. ATRIA The left atrium size is normal. The right atrium is borderline dilated. AORTIC VALVE The aortic valve is mildly thickened. There is trace aortic regurgitation. There is no aortic valvular stenosis. MITRAL VALVE The mitral valve is mildly thickened. There is no mitral valve regurgitation noted. There is no mitral valve stenosis. TRICUSPID VALVE There is moderate tricuspid regurgitation. There is moderate pulmonary hypertension. PULMONIC VALVE There is trace pulmonic valvular regurgitation. GREAT VESSELS The aortic root is normal in size. The IVC is dilated. <Conclusion> There is moderate concentric left ventricular hypertrophy. The left ventricular function is normal. The left ventricular ejection fraction is within the normal range. There is normal LV segmental wall motion. Transmitral Doppler flow pattern is Grade II-pseudonormal filling dynamics. There is moderate tricuspid regurgitation. There is moderate pulmonary hypertension.
== END 2018-10-09 19:20 | disposition home or self-care (01) | DRG 313 ==
LOC: ED 14:06 → ERH 16:32 → 2RSO 17:43
PROVIDERS: ADMIT Hospitalist; ATTEND Hospitalist
DX: R07.89 Other chest pain (principal); G20 Parkinson's disease; H40.9 Unspecified glaucoma; I07.1 Rheumatic tricuspid insufficiency; I10 Essential (primary) hypertension; I27.20 Pulmonary hypertension, unspecified; K21.9 Gastro-esophageal reflux disease without esophagitis; M81.0 Age-related osteoporosis without current pathological fracture; Z80.41 Family history of malignant neoplasm of ovary; Z82.49 Family history of ischemic heart disease and other diseases of the circulatory system; Z85.3 Personal history of malignant neoplasm of breast; Z90.10 Acquired absence of unspecified breast and nipple; Z92.21 Personal history of antineoplastic chemotherapy; Z92.3 Personal history of irradiation